=== PATIENT | female | born 1960 | race Caucasian/White ===

== ENCOUNTER 2018-11-06 15:36 | Emergency (ER) | payer BC, MEDICARE, SELFPAY ==
[2018-11-06 15:38] VITALS: BP 188/83; PULSE 79; RESP 16; TEMP 36.9; O2SAT 97; BMI 26.5
--- NOTE | 2018-11-06 16:23 | ED.VIS.BACK ---
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 It radiates down to her left knee but not beyond. No groin pain. No numbness. No bowel or bladder dysfunction. She feels it is difficult to walk but it is because of the pain, when asked if she has weakness in the leg she states it is only difficult to walk because it hurts. Further history obtained: Patient was at work when this happened. 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 She was doing at this morning, then she sat down. She had no problems until she stood up from a chair that she sat down in. Prior similar symptoms: No Recent Illness/Hospitalization: No - Past Medical History (1) Deafness Status: Chronic Comment: Following febrile illness age 4. Uses hearing aids occasionally but notes frequent headaches with use. Past Medical History - Allergies and Home Meds Allergies/Adverse Reactions: Allergies No Known Allergies Allergy (Verified 11/06/18 15:43) Primary Care Physician: Talib Devlin MD [Primary Care Provider] - Surgical History: hysterectomy, - - LLE muscle tumor resection, unclear type. Lives: Spouse/ Significant Other Smoking Status: Never smoker Drugs: None - no IVDU - Family History Maternal Family History: Reports: Heart Disease, Hypertension Paternal Family History: Reports: Diabetes Review of Systems General: Denies: Chills, Fever Gastrointestinal: Denies: Abdominal pain, Nausea, Vomiting, Diarrhea, Melena, Hematochezia Musculoskeletal: Reports: Back pain, Extremity Pain. Denies: Neck pain, Swelling Skin: Denies: Rash, Wounds Neurological: Denies: Headache, Weakness, Numbness Physical Exam Vital Signs/Narrative: Vital Signs Temp Pulse Resp BP Pulse Ox 11/06/18 15:38 98.4 F 79 16 188/83 H 97 Inital Vital Signs reviewed: Yes General: Well nourished, Well developed, - - uncomfortable, NAD Head: Normocephalic, Atraumatic Abdomen: Soft, Nontender, Nondistended, Normal bowel sounds Back: Normal Inspection, Paraspinal Tenderness - left lumbar, near/below pelvic brim and at left sciatic notch, - - Sitting straight leg raises yield only significant increase in back pain, no radicular symptoms to the feet. She tolerates only 10 or 15 degrees of elevation each.. Negative for: Spinal tenderness Extremeties: Nontender, No edema Skin: Normal color, No rash, No Trauma Neuro: Alert, Oriented, Normal Strength, Normal Sensation, Normal DTR, Normal Gait, Normal Reflexes Psychological: Normal affect, Normal Mood Diagnostic/Tx/Re-eval Clinical Impression(s) from Imaging Studies Lumbar Spine X-Ray 11/06/18 16:55 IMPRESSION: Degenerative changes of the spine, as detailed above. Electronically Signed: Sean Franklin MD at 17:14 EDT , Service support , - Medical Decision Making Patient was treated with analgesics and does feel better. Pain is still present though. She is able to walk. She is neurologically intact throughout her lower extremities. X-rays show no obvious acute abnormality. My suspicion is that she is having a radiculopathy with true sciatica although leg raises really are not positive for that, however she did not tolerate raising them very high at all, which is probably why. [facility] I will write her prescription for analgesics and write her off for tomorrow because of all of this pain. ED Disposition - Plan for ED Patient: Disposition: Home or Assisted Living Diagnosis: Acute low back pain with sciatica Instructions: ED Sciatica Prescriptions: Oxycodone HCl/Acetaminophen [Percocet 5/325] 1 tab PO Q6H PRN PRN 3 Days #12 tab PRN Reason: Pain Naproxen [Naprosyn] 500 mg PO BID PRN #20 tab Referrals: Talib Devlin MD [Primary Care Provider] - [facility] [GROUP OF PHYSICIANS] - (1-3 days)
--- NOTE | 2018-11-06 16:27 | ED.DCSUM_ITS ---
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 It radiates down to her left knee but not beyond. No groin pain. No numbness. No bowel or bladder dysfunction. She feels it is difficult to walk but it is because of the pain, when asked if she has weakness in the leg she states it is only difficult to walk because it hurts. Further history obtained: Patient was at work when this happened. 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 She was doing at this morning, then she sat down. She had no problems until she stood up from a chair that she sat down in. Prior similar symptoms: No Recent Illness/Hospitalization: No - Past Medical History (1) Deafness Status: Chronic Comment: Following febrile illness age 4. Uses hearing aids occasionally but notes frequent headaches with use. Past Medical History - Allergies and Home Meds Allergies/Adverse Reactions: Allergies No Known Allergies Allergy (Verified 11/06/18 15:43) Primary Care Physician: Talib Devlin MD [Primary Care Provider] - Surgical History: hysterectomy, - - LLE muscle tumor resection, unclear type. Lives: Spouse/ Significant Other Smoking Status: Never smoker Drugs: None - no IVDU - Family History Maternal Family History: Reports: Heart Disease, Hypertension Paternal Family History: Reports: Diabetes Review of Systems General: Denies: Chills, Fever Gastrointestinal: Denies: Abdominal pain, Nausea, Vomiting, Diarrhea, Melena, Hematochezia Musculoskeletal: Reports: Back pain, Extremity Pain. Denies: Neck pain, Swelling Skin: Denies: Rash, Wounds Neurological: Denies: Headache, Weakness, Numbness Physical Exam Vital Signs/Narrative: Vital Signs Temp Pulse Resp BP Pulse Ox 11/06/18 15:38 98.4 F 79 16 188/83 H 97 Inital Vital Signs reviewed: Yes General: Well nourished, Well developed, - - uncomfortable, NAD Head: Normocephalic, Atraumatic Abdomen: Soft, Nontender, Nondistended, Normal bowel sounds Back: Normal Inspection, Paraspinal Tenderness - left lumbar, near/below pelvic brim and at left sciatic notch, - - Sitting straight leg raises yield only significant increase in back pain, no radicular symptoms to the feet. She tolerates only 10 or 15 degrees of elevation each.. Negative for: Spinal tenderness Extremeties: Nontender, No edema Skin: Normal color, No rash, No Trauma Neuro: Alert, Oriented, Normal Strength, Normal Sensation, Normal DTR, Normal Gait, Normal Reflexes Psychological: Normal affect, Normal Mood Diagnostic/Tx/Re-eval Clinical Impression(s) from Imaging Studies Lumbar Spine X-Ray 11/06/18 16:55 IMPRESSION: Degenerative changes of the spine, as detailed above. Electronically Signed: Sean Franklin MD at 17:14 EDT , Service support , - Medical Decision Making Patient was treated with analgesics and does feel better. Pain is still present though. She is able to walk. She is neurologically intact throughout her lower extremities. X-rays show no obvious acute abnormality. My suspicion is that she is having a radiculopathy with true sciatica although leg raises really are not positive for that, however she did not tolerate raising them very high at all, which is probably why. She will follow-up with [facility]. I will write her prescription for analgesics and write her off for tomorrow because of all of this pain. ED Disposition - Plan for ED Patient: Disposition: Home or Assisted Living Diagnosis: Acute low back pain with sciatica Instructions: ED Sciatica Prescriptions: Oxycodone HCl/Acetaminophen [Percocet 5/325] 1 tab PO Q6H PRN PRN 3 Days #12 tab PRN Reason: Pain Naproxen [Naprosyn] 500 mg PO BID PRN #20 tab Referrals: Talib Devlin MD [Primary Care Provider] - [facility] [GROUP OF PHYSICIANS] - (1-3 days)
[2018-11-06] MEDS: Ketorolac 60 MG/2 ML Vial IM (16:42)
[2018-11-06] MEDS: Morphine 4 MG/ML Syringe SC (16:42)
[2018-11-06] MEDS: Ondansetron ODT 4 MG Tablet 8 MG PO (16:42)
--- NOTE | 2018-11-06 16:55 | RAD_ITS ---
STUDY: X-RAY - LUMBAR SPINE REASON FOR EXAM: Female, 58 years old. Left-sided low back pain after heavy lifting. TECHNIQUE: 3 view(s) of the lumbar spine were obtained. COMPARISON: None FINDINGS: Normal lumbar lordosis. There is no substantial scoliosis. There is grade 1 anterolisthesis of L5 on S1. There is multilevel early anterior endplate spondylosis of the lumbar vertebrae. There is multi-level degenerative disc disease with multi-level disc space narrowing. There is no demonstrated fracture. There are degenerative changes of the mid to lower lumbar facet joints. The soft tissue structures are unremarkable. RAD/Lumbar Spine 2 or 3 Views IMPRESSION: Degenerative changes of the spine, as detailed above. Electronically Signed: Sean Franklin MD at 17:14 EDT , Service support ,
--- NOTE | 2018-11-06 19:34 | ED.RN ---
spoke with pt's supervisors, Celestine ([phone]), and then Igor ([phone]) to ask about urine drug test and she is not a test but they have their own company [employer] to follow up with.
--- NOTE | 2018-11-06 19:49 | ED.RN ---
used [employer] service on ipad with MD to explain results and followup care with pt and spouse. pt refused w/c at discharge d/t it being less painful to walk.
== END 2018-11-06 19:50 | disposition home or self-care (01) ==
PROVIDERS: Emergency Provider Emergency Medicine; Family Provider Family Medicine; PCP Family Medicine
DX: M54.42 Lumbago with sciatica, left side (principal); H91.90 Unspecified hearing loss, unspecified ear
CPT/HCPCS: 72100; 96372; 99283

== ENCOUNTER 2019-01-07 03:03 | Emergency (ER) | payer BC, MEDICARE, SELFPAY ==
[2019-01-07 03:04] VITALS: BP 178/72; PULSE 67; RESP 18; TEMP 36.3; O2SAT 98; BMI 26.9
--- NOTE | 2019-01-07 03:19 | ED.VIS.GEN ---
History of Present Illness Chief Complaint: Back Informant: Patient, Significant Other Onset: Weeks - 3 Narrative: Patient is deaf, able to communicate by reading lips and writing. Patient with recurring lumbar pain for the past 3 weeks. He works at [employer], significant other present stating she is told to work and continue to lift heavy boxes. No falls or direct injuries. Patient was seen 2 months ago for similar events, asked her to follow-up with corporate care, however during discussion states there was letter of communication however she physically did not have a follow-up. Pain worse with bending and movement. No loss of bowel or bladder control. No pain down the legs this time. X-rays done 2 months ago with degenerative changes with grade 1 spinal listhesis at L5-S1. No allergies. Prior similar symptoms: Yes Past Medical History - Allergies and Home Meds Allergies/Adverse Reactions: Allergies No Known Allergies Allergy (Verified 01/07/19 03:09) Primary Care Physician: Talib Devlin MD [Primary Care Provider] - Surgical History: hysterectomy, - - LLE muscle tumor resection, unclear type. Smoking Status: Never smoker - Family History Maternal Family History: Reports: Heart Disease, Hypertension Paternal Family History: Reports: Diabetes Review of Systems General: Denies: Chills, Fever, Sweats Eyes: Denies: Visual changes - bilaterally, Diplopia ENT: Denies: Rhinorrhea, Sore throat Cardiovascular: Denies: Chest pain, Palpitations Respiratory: Denies: Dyspnea, Cough, Dyspnea on exertion Gastrointestinal: Denies: Abdominal pain, Nausea, Vomiting, Diarrhea, Melena, Hematochezia Genitourinary: Denies: Dysuria, Hematuria, Frequency Musculoskeletal: Reports: Back pain. Denies: Extremity Pain Skin: Denies: Rash, Wounds Neurological: Denies: Headache, Weakness, Numbness Physical Exam Vital Signs/Narrative: Vital Signs Temp Pulse Resp BP Pulse Ox 01/07/19 03:04 97.3 F L 67 18 178/72 H 98 Inital Vital Signs reviewed: Yes General: Well nourished, Well developed, No Acute Distress Head: Normocephalic, Atraumatic Eyes: Perrl, EOMI ENT: Moist mucous membranes, No rhinorrhea Neck: Supple, Nontender Cardiovascular: Regular rate, Regular rhythm, No murmurs Respiratory: No distress, CTA bilaterally, Chest nontender Abdomen: Soft, Nontender, Nondistended, Normal bowel sounds Back: Normal Inspection, - - Reproducible left paralumbar tenderness, straight leg test did not elicit any pain down the legs have discomfort in the right lower back. 3+ right patellar reflex, 1+ left patellar reflex.. Negative for: Spinal tenderness Extremities: Nontender, No edema Skin: Normal color, No rash Neurological: Alert, Oriented x3, Normal Strength, Normal Sensation Psychological: Normal affect, Normal Mood Diagnostic/Tx/Re-eval - Medical Decision Making Patient with no falls or direct injury. Lifting at work, reproducible symptoms. X-ray 2 months ago no degenerative changes. [facility] report noted one prescription oxycodone from 2 months ago. Patient able to ambulate in the ED, will placed on anti-inflammatories and muscle relaxers. Appropriate work restrictions were given. Discussed need to follow-up and be physically seen by [facility] for reevaluation and continue restrictions as needed. All questions were answered. ED Disposition - Plan for ED Patient: Disposition: Home or Assisted Living Diagnosis: Lumbar spine strain Instructions: Back Sprain/Strain Prescriptions: Ibuprofen 600 mg PO 4X/DAY PRN #20 tablet PRN Reason: Pain Diazepam [Valium] 5 mg PO Q8 PRN #12 tablet PRN Reason: Muscle Spasm Referrals: Talib Devlin MD [Primary Care Provider] - [facility] [GROUP OF PHYSICIANS] - 2 Days
[2019-01-07] MEDS: diazePAM 5 MG Tablet PO (03:28)
[2019-01-07] MEDS: Ibuprofen 600 MG Tablet PO (03:29)
[2019-01-07 03:42] VITALS: BP 164/70; PULSE 66; RESP 18; O2SAT 98
[2019-01-07 03:43] VITALS: RESP 16
== END 2019-01-07 03:43 | disposition home or self-care (01) ==
LOC: ED 03:39
PROVIDERS: Emergency Provider Emergency Medicine; Family Provider Family Medicine; PCP Family Medicine
DX: S39.012A Strain of muscle, fascia and tendon of lower back, initial encounter (principal); X50.0XXA Overexertion from strenuous movement or load, initial encounter; Y93.9 Activity, unspecified; Y92.9 Unspecified place or not applicable; H91.93 Unspecified hearing loss, bilateral
CPT/HCPCS: 99283

== ENCOUNTER 2019-08-16 18:19 | Observation (INO) | payer BC, MEDICARE, SELFPAY ==
[2019-08-16 18:22] VITALS: BP 148/85; PULSE 74; RESP 18; TEMP 36.5; O2SAT 95; BMI 25.7
--- NOTE | 2019-08-16 18:47 | EKG12_ITS ---
Test Reason : CHEST PAIN Blood Pressure : / mmHG Vent. Rate : 068 BPM Atrial Rate : 068 BPM P-R Int : 164 ms QRS Dur : 074 ms QT Int : 402 ms P-R-T Axes : 046 -05 -15 degrees QTc Int : 427 ms Normal sinus rhythm Minimal voltage criteria for LVH, may be normal variant Nonspecific T wave abnormality Abnormal ECG Confirmed by PIERRE RAZO, ERLINDA ([id number]), legal editor LEAH AVILA ([id number]) on 08/23/2019 11:12:18 AM Referred By: [facility] Confirmed By:ARIANA JAY MD
--- NOTE | 2019-08-16 18:49 | ED.DCSUM_ITS ---
History of Present Illness Chief Complaint: Chest Pain Informant: Patient Onset: Today Context: Gradual Onset Narrative: Patient is deaf and history is obtained via writing notes. Patient states that she developed chest pain that started 45 minutes ago. She states it feels a squeezing and pressure. She denies shortness of breath. Pain does radiate into her back as well as into the right side of her jaw. She denies ever having pain like this previously. She did not take anything at home for pain. On review of records it does appear she was admitted in 2015 with chest pain and had a normal stress test at that time. - Past Medical History (1) Deafness Status: Chronic Comment: Following febrile illness age 4. Uses hearing aids occasionally but notes frequent headaches with use. (2) Hypertension Status: Chronic Past Medical History - Allergies and Home Meds Allergies/Adverse Reactions: Allergies No Known Allergies Allergy (Verified 08/16/19 18:27) Primary Care Physician: Talib Devlin MD [Primary Care Provider] - Prior records reviewed: Yes Surgical History: hysterectomy, - - LLE muscle tumor resection, unclear type. Lives: Spouse/ Significant Other Smoking Status: Never smoker - Family History Maternal Family History: Reports: Heart Disease, Hypertension Paternal Family History: Reports: Diabetes Review of Systems General: Denies: Chills, Fever Eyes: Denies: Visual changes - bilaterally ENT: Denies: Bilateral ear pain Cardiovascular: Reports: Chest pain Respiratory: Denies: Dyspnea Gastrointestinal: Denies: Abdominal pain, Nausea, Vomiting, Diarrhea Genitourinary: Denies: Dysuria Musculoskeletal: Reports: Back pain Skin: Denies: Rash Neurological: Denies: Headache Allergy: Denies: Uticaria Physical Exam Vital Signs/Narrative: Vital Signs Temp Pulse Resp BP Pulse Ox 08/16/19 18:22 97.7 F L 74 18 148/85 H 95 Inital Vital Signs reviewed: Yes General: Well nourished, Well developed Head: Normocephalic ENT: Moist mucous membranes Neck: Supple Cardiovascular: Regular rate, Regular rhythm Respiratory: No distress, CTA bilaterally, Chest nontender Abdomen: Soft, Nontender Back: Nontender Extremities: Nontender Skin: Normal color, No rash Neurological: Alert, Oriented x3 Psychological: Normal affect Diagnostic/Tx/Re-eval Impressions Chest X-Ray 08/16/19 18:55 IMPRESSION: Stable chest. No demonstrated acute cardiopulmonary process. Electronically Signed: Jess Palafox MD at 19:23 EDT Tel , Service support , 08/16/19 18:55 Chest 1 View (Portable) [RAD] Stat Laboratory Results 08/16/19 08/16/19 18:55 18:55 WBC 7.9 RBC 4.17 L Hgb 12.5 Hct 36.0 L MCV 86.3 MCH 30.0 MCHC 34.7 RDW Std Deviation 40.2 RDW Coeff of Ivy 12.9 Plt Count 239 MPV 10.1 Immature Gran % (Auto) 0.300 Neut % (Auto) 51.5 Lymph % (Auto) 38.1 [place] % (Auto) 6.8 Eos % (Auto) 2.9 Baso % (Auto) 0.4 Absolute Neuts (auto) 4.1 Absolute Lymphs (auto) 3.01 Nucleated RBC % 0 Sodium 137 Potassium 3.8 Chloride 103 Carbon Dioxide 26.0 Anion Gap 8 BUN 17 Creatinine 0.85 Estim Creat Clear Calc 64.92 Est GFR (MDRD) Af Amer 88 Est GFR (MDRD) Non-Af 73 BUN/Creatinine Ratio 19.9 Glucose 145 H Calcium 8.5 Troponin I 0.040 - EKG Initial EKG Interpretation: Sinus Rhythm - Sinus at 68. She has lateral T inversions. This is unchanged when compared to prior study of July 2014. - Medical Decision Making Patient was given aspirin along with morphine and Zofran for pain. On repeat evaluation patient states her pain is improved. She is now rating her pain at a 2 where previously it was an 8. Patient reiterates that she is never had pain like this previously. I would prefer she stay overnight for cycling of cardiac enzymes and further testing. She is in agreement with this. She will be given a work note for tomorrow. We will speak with the hospitalist. ED Disposition - Plan for ED Patient: Disposition: [facility] Diagnosis: Chest pain Referrals: Talib Devlin MD [Primary Care Provider] -
--- NOTE | 2019-08-16 18:55 | RAD_ITS ---
STUDY: X-RAY CHEST REASON FOR EXAM: Female, 59 years old. And quot; SQUEEZING CHEST PAIN STARTED 30 MIN AGO. GOES UP RIGHT JAW AND INTO LEFT ARM. DENIES NAUSEA, DIZZINESS. TECHNIQUE: Single AP portable view of the chest. COMPARISON: August 13, 2014 chest x-ray FINDINGS: Overall the lung markings appear relatively similar. There is no visualized acute focal consolidation. There is no demonstrated pleural abnormality. There is borderline cardiomegaly. Normal mediastinum and dustin. Normal visualized pulmonary arteries. Normal visualized aortic arch and descending thoracic aorta. There are diffuse degenerative changes of the visualized thoracic spine. Normal visualized ribs, clavicles, and shoulders. There is no demonstrated abnormality of the visualized soft tissue structures of the upper abdomen. RAD/Chest 1 View (Portable) IMPRESSION: Stable chest. No demonstrated acute cardiopulmonary process. Electronically Signed: Jess Palafox MD at 19:23 EDT Tel , Service support ,
[2019-08-16 19:18] LABS: Absolute Lymphocyte Count 3.01 X10^3/uL (0.83-4.51); Absolute Neutrophil Count 4.1 X10^3/uL (2.0-7.7); Basophil# 0.03 X10^3/uL; Basophil% 0.4 % (0-1); Eosinophil# 0.23 X10^3/uL; Eosinophils% 2.9 % (0-5); Hemoglobin 12.5 g/dL (12.0-15.0); Lymphocyte # 3.01 X10^3/ul (4.0); Lymphocyte % 38.1 % (19-41); Mean Corp Hgb Conc 34.7 g/dL (32-36); Mean Corpuscular Volume 86.3 fL (81-99); Mean Platelet Vol. 10.1 fl (6.2-12.0); Monocyte# 0.54 X10^3/uL; Monocyte% 6.8 % (0-10); NRBC Flagged by Analyzer 0 % (0-5); Neutrophil # 4.08 X10^3/uL (2.7-7.7); Neutrophil % 51.5 % (47-70); Platelet Count 239 K/mm3 (150-450); RBC Distribution Width CV 12.9 % (11.6-14.6); RBC Distribution Width SD 40.2 fl (35.1-43.9); Red Blood Count 4.17 M/mm3 (4.2-5.4); White Blood Count 7.9 K/mm3 (4.4-11.0)
[2019-08-16] MEDS: 0.9% Normal Saline 1,000 ML 150 ML IV (19:23)
[2019-08-16] MEDS: Morphine 4 MG/ML Syringe IV (19:24)
[2019-08-16] MEDS: Aspirin 81 MG TAB.CHEW 324 MG PO (19:24)
[2019-08-16] MEDS: Ondansetron 4 MG/2 ML Vial IV (19:26)
[2019-08-16 19:33] VITALS: BP 183/70; PULSE 68; RESP 16; O2SAT 96
[2019-08-16 19:38] LABS: Anion Gap 8 (5-15); BUN 17 mg/dL (7-18); BUN/Creat Ratio 19.9 RATIO (10-20); Calcium,Total 8.5 mg/dL (8.5-10.1); Chloride 103 mmol/L (98-107); Creatinine, Serum 0.85 mg/dL (0.55-1.02); EST Glomerular Filtration Rate 73 mL/min (>60); Est Glom Filt Rate - Afr Amer 88 mL/min (>60); Estimated Creatinine Clearance 64.92 ml/min; Glucose 145 mg/dL (74-106); Potassium 3.8 mmol/L (3.5-5.1); Sodium Level 137 mmol/L (136-145)
--- NOTE | 2019-08-16 20:08 | PCM.HP.STD ---
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 (4) Deafness Status: Chronic Comment: Following febrile illness age 4. Uses hearing aids occasionally but notes frequent headaches with use. History of Present Illness Date of Admission: 08/16/19 Chief Complaint: chest pain The patient is a 59 year old F with a significant history of deafness; hypertension; and borderline HLD who presented to the ED with excruciating chest pain that began a few hours before presentation. She rated her chest pain as 8/10. Her chest pain spun across her entire chest. Her chest pain radiates to her right jaw and to her left arm. It also goes to her back. She described her chest pain as squeezing. Her chest pain began suddenly while at rest and watching TV. At the emergency department patient was given aspirin; and morphine. With the medications above her pain decreased to 3 out of 10. She denies any aggravating or ameliorating factors while at home. She denies any nausea or vomiting. She reports some associated mild shortness of breath. Of note patient is deaf and history was taken through writing. Patient was admitted at our hospital ([facility]) on 08/13/2014 and discharged on 08/13/2014 for chest pain. Cardiac work-up at that time was negative. Past Medical History Past Medical History (Chronic Problems): Chronic Problems Hypertension (Chronic) LLE Muscle Tumor (Chronic) Unclear tumor type, notes s/p resection of muscle tissue. Deafness (Chronic) Following febrile illness age 4. Uses hearing aids occasionally but notes frequent headaches with use. Allergies No Known Allergies Allergy (Verified 08/16/19 18:27) Home Medications: Ambulatory Orders Medication Instructions Recorded Lisinopril [Zestril] 20 mg PO DAILY 08/16/19 Surgical History: hysterectomy, - - LLE muscle tumor resection, unclear type. Psychiatric History: No pertinent psych hx GUIDANCE ADVISER History: No pertinent GUIDANCE ADVISER history Lives: Spouse/ Significant Other Smoking Status: Never smoker Alcohol: None - *Family History Maternal History Items: Heart Disease, Hypertension Paternal History Items: Diabetes Review of Systems Constitutional: Denies: Chills, Fever, Weight Change HEENT: Denies: Head Aches, Sinus Congestion, Sinus Drainage Cardiovascular: Reports: Chest Pain. Denies: Palpitations Respiratory: Reports: Shortness of Breath. Denies: Cough, Sputum production Gastrointestinal: Denies: Abdominal Pain, Nausea, Vomiting Genitourinary: Denies: Dysuria Musculoskeletal: Denies: Joint Pain, Joint Tenderness Skin: Denies: Rash, Wounds Neurological: Denies: Numbness, Tingling, Focal weakness Psychiatric: Denies: Anxiety, Depression, Homicidal Ideations, Suicidal Ideations Hematologic/ Lymphatic: Denies: Easy Bruising, Easy Bleeding VTE Information - Inpt Only VTE Present on Admission: No VTE Mechan Device Prophylaxis: SCD's VTE Pharm Prophylaxis ordered?: No Patient Problems: Active and Suspected Problems Chest pain (Acute) - Physical Exam Vitals/I&O's: Vital Signs Temp Pulse Resp BP Pulse Ox 97.7 F L 68 16 183/70 H 96 08/16/19 18:22 08/16/19 19:33 08/16/19 19:33 08/16/19 19:33 08/16/19 19:33 Oxygen Delivery Method Room Air Weight: 70.3 kg Body Mass Index (BMI) 25.7 General: Alert, Oriented x3, Cooperative HEENT: Atraumatic, PERRLA, EOMI, Normocephalic Neck: Supple, No JVD, Negative Carotid Bruits Lungs: Clear to auscultation, Normal air movement Cardiovascular: Regular rate, No murmurs Abdomen: Bowel Sounds Present, Soft, Non Tender Extremities: No edema, Capillary Refill Less than 3 Seconds Skin: No rashes, No breakdown Musculoskeletal: No Tenderness to Palpation of Joints or Extremities Neurological: Cranial nerves II-XII grossly intact - except that patient is deaf. Psych/Mental Status: Normal Affect, Appropriate Laboratory Results 08/16/19 18:55: WBC 7.9, RBC 4.17 L, Hgb 12.5, Hct 36.0 L, MCV 86.3, MCH 30.0, MCHC 34.7, RDW Std Deviation 40.2, RDW Coeff of Ivy 12.9, Plt Count 239, MPV 10.1, Immature Gran % (Auto) 0.300, Neut % (Auto) 51.5, Lymph % (Auto) 38.1, [place] % (Auto) 6.8, Eos % (Auto) 2.9, Baso % (Auto) 0.4, Absolute Neuts (auto) 4.1, Absolute Lymphs (auto) 3.01, Nucleated RBC % 0 08/16/19 18:55: Sodium 137, Potassium 3.8, Chloride 103, Carbon Dioxide 26.0, Anion Gap 8, BUN 17, Creatinine 0.85, Estim Creat Clear Calc 64.92, Est GFR (MDRD) Af Amer 88, Est GFR (MDRD) Non-Af 73, BUN/Creatinine Ratio 19.9, Glucose 145 H, Calcium 8.5, Troponin I 0.040 Current Medications Sodium Chloride () 1,000 mls @ 150 mls/hr IV .[id number] [facility] Last Admin: 08/16/19 19:23 Dose: 150 mls/hr Documented by: Assessment/Plan All Active Problems Chest pain (Acute) The patient is a 59 year old F with a significant history of diabetes; hypertension; borderline HLD who presented to the ED with excruciating chest pain that began a few hours before presentation concerning for cardiac source of chest pain. Chest pain Place on a monitored bed at PCU CXR independently reviewed confirms no acute cardiopulmonary process. EKG independently reviewed confirms subtle J-point elevation in leads V1 and V2. ASA 81 mg p.o. daily SL NTG 0.4 mg prn as needed for chest pain We will check lipid panel. Statin: Start patient on Lipitor 40 mg nightly. Serial cardiac enzymes Stat EKG as needed for chest pain Treadmill stress test in the AM if the cardiac enzymes are negative Hypertension On presentation blood pressure was not within goal Lisinopril continued PRN hydralazine ordered. DVT prophylaxis SCD OBSV E&M: [id number] Initial observation care L3
[2019-08-16 21:32] VITALS: BP 143/70; PULSE 57; RESP 15; TEMP 36.4; O2SAT 96
[2019-08-16 21:40] VITALS: PULSE 65; BMI 27.3; BMI 69.9
--- NOTE | 2019-08-16 21:48 | EKG12_ITS ---
Test Reason : CP ADMIT Blood Pressure : / mmHG Vent. Rate : 055 BPM Atrial Rate : 055 BPM P-R Int : 162 ms QRS Dur : 072 ms QT Int : 442 ms P-R-T Axes : 053 003 -28 degrees QTc Int : 422 ms Sinus bradycardia T wave abnormality, consider lateral ischemia Abnormal ECG When compared with ECG of 13-AUG-2014 05:51, No significant change was found Confirmed by KOSTAS DAVIS ([id number]), electronic news gathering editor CUCO GUTIERREZ ([id number]) on 08/19/2019 9:30:35 AM Referred By: DR EPPS Confirmed By:KOSTAS DAVIS
[2019-08-16 22:00] VITALS: BP 147/68; BP 169/72; PULSE 62; RESP 12; TEMP 36.3; O2SAT 95
[2019-08-17] MEDS: Atorvastatin Calcium 40 MG Tablet PO (00:01)
[2019-08-17] MEDS: 0.9% Saline Lock 10 ML Syringe IV (01:13)
[2019-08-17 01:57] VITALS: PULSE 72
[2019-08-17 02:22] VITALS: BP 111/52; PULSE 71; RESP 18; TEMP 36.8; O2SAT 92
[2019-08-17 02:22] LABS: Cholesterol 183 mg/dL (200); High Density Lipoprotein 33 mg/dL; Triglycerides 201 mg/dL; Very Low Density Lipoprotein 40 mg/dL (5-40)
--- NOTE | 2019-08-17 05:55 | EKG12_ITS ---
Test Reason : AM EKG Blood Pressure : / mmHG Vent. Rate : 065 BPM Atrial Rate : 065 BPM P-R Int : 170 ms QRS Dur : 078 ms QT Int : 430 ms P-R-T Axes : 048 -19 -42 degrees QTc Int : 447 ms Normal sinus rhythm T wave abnormality, consider inferior ischemia Abnormal ECG When compared with ECG of 13-AUG-2014 05:51, T wave inversion more evident in Inferior leads Confirmed by KOSTAS DAVIS ([id number]), editor greeting card CUCO GUTIERREZ ([id number]) on 08/19/2019 9:46:57 AM Referred By: DR EPPS Confirmed By:KOSTAS DAVIS
[2019-08-17] MEDS: Lisinopril 20 MG Tablet PO (06:07)
[2019-08-17] MEDS: Aspirin E.C. 81 MG Tablet PO (06:07)
[2019-08-17 07:41] VITALS: PULSE 57
[2019-08-17 08:18] VITALS: BP 138/65; PULSE 62; RESP 16; TEMP 36.5; O2SAT 95
--- NOTE | 2019-08-17 11:53 | DCINST_ITS ---
- Discharge Diagnoses Current Active Problems: Current Active and Chronic Problems Musculoskeletal chest pain You will use the following diet at home:: No restrictions Discharge Activity: Return to Normal Activity Call your doctor if you observe: Shortness of breath, Dizziness, Fainting spells, Chest pain Allergies/Adverse Reactions: Allergies No Known Allergies Allergy (Verified 08/16/19 18:27) Medications to take at Discharge Lisinopril [Zestril] 20 mg PO DAILY 08/16/19 Primary Care Physician: Talib Devlin MD [Primary Care Provider] - Please follow up with your Primary Care Physician in: 1 Week Test Results: Test results from this visit will be discussed in further detail at your follow- up appointment, if applicable. Proposed Discharge Date: 08/17/19
--- NOTE | 2019-08-17 12:51 | STRESSREP ---
Stress Test Report Date: 08/17/2019 Procedure: Pharmacologic stress nuclear imaging study Indications: Chest pain Consent: Per the patient Procedure: The patient underwent pharmacologic (Regadenoson) evaluation with a peak heart rate of 90 beats per minute (55 %predicted maximal heart rate) and a peak blood pressure of 136/70 mmHg. The baseline ECG demonstrated normal sinus rhythm, nonspecific ST-T changes. EKG during lexiscan infusion revealed no significant ischemic changes. EKG post infusion revealed no significant ischemic changes [There were no cardiac dysrhythmias pretest, during pharmacologic infusion, or recovery]. [There was no complaint of chest discomfort during pharmacologic infusion or recovery]. The examination was discontinued secondary to completion of protocol. Impression: 1. Lexiscan stress test test is negative for Lexiscan infusion induced EKG changes of ischemia. 2. Lexiscan stress test test is negative for Lexiscan infusion induced chest pain. 3. Results of the nuclear portion of the test is as below Myocardial perfusion imaging study: Technique: The patient was injected with 12 millicuries of technetium 99m Cardiolite and subsequently rest SPECT Cardiolite nuclear imaging was obtained in the horizontal long, vertical long, and short axis views. The patient underwent pharmacologic (Regadenoson) evaluation. Please see above for details. The patient was injected with 33.9 millicuries of technetium 99m Cardiolite and subsequently stress SPECT Cardiolite nuclear imaging was obtained in the horizontal long, vertical long, and short axis views. A gated Cardiolite study at peak stress was obtained. Interpretation: Rest and stress SPECT Cardiolite nuclear imaging status post realignment, normalization, and attenuation correction demonstrate overall normal myocardial radioisotope uptake. There is no evidence of significant ischemia or infarction. Gated images reveal no significant regional wall motion abnormalities. The reported LVEF is greater than 70 %. Impression: 1. There is no evidence of significant ischemia or infarction. 2. Estimated ejection fraction is greater than 70%. This note was generated with [employer] software. It may contain incorrect words, spelling, and punctuation that were not noted in checking the note before signing.
--- NOTE | 2019-08-17 13:09 | DS.PCM_ITS ---
<Twyla Seo - Last Filed: 08/17/19 13:15> Discharge Date and Diagnosis Date of Admission: 08/16/19 Date of Discharge: 08/17/19 - Primary Discharge Diagnosis Active and Suspected Problems 1. Musculoskeletal chest pain 2. Abnormal troponin 3. Hypertension 4. Deafness - Secondary Discharge Diagnosis Chronic Problems Hypertension (Chronic) LLE Muscle Tumor (Chronic) Unclear tumor type, notes s/p resection of muscle tissue. Deafness (Chronic) Following febrile illness age 4. Uses hearing aids occasionally but notes frequent headaches with use. Hospital Course and Treatment Imaging Results: Diagnostic Data Chest X-Ray 08/16/19 18:55 IMPRESSION: Stable chest. No demonstrated acute cardiopulmonary process. Electronically Signed: Jess Palafox MD at 19:23 EDT Tel , Service support , Operations: None Procedures: Stress test Summary of Care Provided: The patient is a 59 year old F admitted 08/16/2019 due to chest pain. 1. Musculoskeletal chest pain-patient reports increased physical demands at work as well as increased stress. Chest x-ray unremarkable. Patient underwent nuclear stress test which was negative for ischemia. Gated ejection fraction 70%. Follow-up with primary care physician within 1 week. Patient requesting work restrictions due to increased physical demand, recommend discussing this with primary care physician for ongoing evaluation and recommendations. 2. Abnormal troponin-mild increase, did not trend. No EKG changes. Stress test normal as noted above. 3. Hypertension-stable, continue home lisinopril regimen. 4. Deafness Patient seen and examined prior to discharge. Physical assessment as noted below. Patient is stable for discharge with follow up recommendations as noted above. This patient was seen by JOSE Okeefe under the supervision of Dr. Olivarez. - Physical Exam Vitals/I&O's: Vital Signs Temp Pulse Resp BP Pulse Ox 97.7 F L 62 16 138/65 H 95 08/17/19 08:18 08/17/19 08:18 08/17/19 08:18 08/17/19 08:18 08/17/19 08:18 Oxygen Delivery Method Room Air Weight: 154 lb 1.65 oz Body Mass Index (BMI) 27.3 Intake and Output for Last 24 Hours 08/15/19 08/16/19 08/17/19 23:59 23:59 23:59 Intake Total 1367.5 / 1367.5 Output Total 650 / 650 Balance 717.5 / 717.5 General: Alert, Oriented x3, Cooperative HEENT: Atraumatic, PERRLA, EOMI, Normocephalic, - - Deafness Neck: Supple, No JVD, Negative Carotid Bruits Lungs: Clear to auscultation, Normal air movement Cardiovascular: Regular rate, Regular Rhythm, Normal S1, Normal S2, No murmurs Abdomen: Bowel Sounds Present, Soft, Non Tender, Non-Distended Extremities: No clubbing, No cyanosis, No edema, Capillary Refill Less than 3 Seconds Skin: No rashes, No breakdown Musculoskeletal: No Tenderness to Palpation of Joints or Extremities Neurological: Cranial nerves II-XII grossly intact, Neuro grossly intact Psych/Mental Status: Normal Affect, Appropriate Laboratory Results 08/16/19 18:55: WBC 7.9, RBC 4.17 L, Hgb 12.5, Hct 36.0 L, MCV 86.3, MCH 30.0, MCHC 34.7, RDW Std Deviation 40.2, RDW Coeff of Ivy 12.9, Plt Count 239, MPV 10.1, Immature Gran % (Auto) 0.300, Neut % (Auto) 51.5, Lymph % (Auto) 38.1, [place] % (Auto) 6.8, Eos % (Auto) 2.9, Baso % (Auto) 0.4, Absolute Neuts (auto) 4.1, Absolute Lymphs (auto) 3.01, Nucleated RBC % 0 08/16/19 18:55: Sodium 137, Potassium 3.8, Chloride 103, Carbon Dioxide 26.0, Anion Gap 8, BUN 17, Creatinine 0.85, Estim Creat Clear Calc 64.92, Est GFR (MDRD) Af Amer 88, Est GFR (MDRD) Non-Af 73, BUN/Creatinine Ratio 19.9, Glucose 145 H, Calcium 8.5, Troponin I 0.040 08/16/19 22:10: Troponin I 0.052 H 08/17/19 01:10: Troponin I 0.054 H 08/17/19 01:10: Triglycerides 201 H, Cholesterol 183, LDL Cholesterol 110, VLDL Cholesterol 40, HDL Cholesterol 33 L 08/17/19 05:10: Troponin I 0.049 H Current Medications Aspirin (Ecotrin) 81 mg PO DAILY@0800 [facility] Last Admin: 08/17/19 06:07 Dose: 81 mg Documented by: Atorvastatin Calcium (Lipitor) 40 mg PO QHS [facility] Last Admin: 08/17/19 00:01 Dose: 40 mg Documented by: Glucagon () 1 mg IM .X1 PRN PRN Reason: Hypoglycemia Hydralazine HCl (Apresoline Iv) 5 mg IV Q4H PRN PRN PRN Reason: SBP > 160 Dextrose (Dextrose 10%-Water) 250 mls @ 999 mls/hr IV .Q16M PRN; Protocol PRN Reason: HYPOGLYCEMIA Sodium Chloride () 250 mls @ 15 mls/hr IV .[id number] PRN PRN Reason: Saline Flush Sodium Chloride () 250 mls @ 15 mls/hr IV .[id number] PRN PRN Reason: Additional IVPB Infusion Lisinopril (Zestril) 20 mg PO DAILY [facility] Last Admin: 08/17/19 06:07 Dose: 20 mg Documented by: Nitroglycerin (Nitrostat) 0.4 mg SUBLINGUAL Q5M PRN PRN Reason: CHEST PAIN Ondansetron HCl (Zofran) 4 mg IV Q8H PRN PRN PRN Reason: NAUSEA/VOMITING Sodium Chloride () 10 - 40 ml IV UD PRN PRN Reason: SALINE FLUSH Last Admin: 08/17/19 01:13 Dose: 10 ml Documented by: Discharge Diet: No Restrictions Discharge Activity: Return to Normal Activity Call your doctor if you observe: Shortness of breath, Dizziness, Fainting spells, Chest pain Home Medications: Medications to take at Discharge Lisinopril [Zestril] 20 mg PO DAILY 08/16/19 Primary Care Physician: Talib Devlin MD [Primary Care Provider] - Please follow up with your Primary Care Physician in: 1 Week Disposition: Home Minutes spent on discharge:: 35 Patient Condition:: Stable Medical Necessity - Tobacco Use Smoking Status: Never smoker Meaningful Use Info Meaningful Use Diagnoses (Choose all that apply): None applicable <Carlos Olivarez - Last Filed: 08/17/19 14:34> Discharge Date and Diagnosis - Secondary Discharge Diagnosis Chronic Problems Hypertension (Chronic) LLE Muscle Tumor (Chronic) Unclear tumor type, notes s/p resection of muscle tissue. Deafness (Chronic) Following febrile illness age 4. Uses hearing aids occasionally but notes frequent headaches with use. Hospital Course and Treatment Imaging Results: 08/17/19 05:55 Nuclear Stress Test - Treadmil [NM] AM (NON MEDS) Summary of Care Provided: The patient is a 59 year old F [] - Physical Exam Vitals/I&O's: Vital Signs Temp Pulse Resp BP Pulse Ox 97.7 F L 62 16 138/65 H 95 08/17/19 08:18 08/17/19 08:18 08/17/19 08:18 08/17/19 08:18 08/17/19 08:18 Oxygen Delivery Method Room Air Weight: 154 lb 1.65 oz Body Mass Index (BMI) 27.3 Intake and Output for Last 24 Hours 08/15/19 08/16/19 08/17/19 23:59 23:59 23:59 Intake Total 1367.5 / 1367.5 Output Total 650 / 650 Balance 717.5 / 717.5 Laboratory Results 08/16/19 18:55: WBC 7.9, RBC 4.17 L, Hgb 12.5, Hct 36.0 L, MCV 86.3, MCH 30.0, MCHC 34.7, RDW Std Deviation 40.2, RDW Coeff of Ivy 12.9, Plt Count 239, MPV 10.1, Immature Gran % (Auto) 0.300, Neut % (Auto) 51.5, Lymph % (Auto) 38.1, [place] % (Auto) 6.8, Eos % (Auto) 2.9, Baso % (Auto) 0.4, Absolute Neuts (auto) 4.1, Absolute Lymphs (auto) 3.01, Nucleated RBC % 0 08/16/19 18:55: Sodium 137, Potassium 3.8, Chloride 103, Carbon Dioxide 26.0, Anion Gap 8, BUN 17, Creatinine 0.85, Estim Creat Clear Calc 64.92, Est GFR (MDRD) Af Amer 88, Est GFR (MDRD) Non-Af 73, BUN/Creatinine Ratio 19.9, Glucose 145 H, Calcium 8.5, Troponin I 0.040 08/16/19 22:10: Troponin I 0.052 H 08/17/19 01:10: Troponin I 0.054 H 08/17/19 01:10: Triglycerides 201 H, Cholesterol 183, LDL Cholesterol 110, VLDL Cholesterol 40, HDL Cholesterol 33 L 08/17/19 05:10: Troponin I 0.049 H Current Medications Aspirin (Ecotrin) 81 mg PO DAILY@0800 [facility] Last Admin: 08/17/19 06:07 Dose: 81 mg Documented by: Atorvastatin Calcium (Lipitor) 40 mg PO QHS [facility] Last Admin: 08/17/19 00:01 Dose: 40 mg Documented by: Glucagon () 1 mg IM .X1 PRN PRN Reason: Hypoglycemia Hydralazine HCl (Apresoline Iv) 5 mg IV Q4H PRN PRN PRN Reason: SBP > 160 Dextrose (Dextrose 10%-Water) 250 mls @ 999 mls/hr IV .Q16M PRN; Protocol PRN Reason: HYPOGLYCEMIA Sodium Chloride () 250 mls @ 15 mls/hr IV .[id number] PRN PRN Reason: Saline Flush Sodium Chloride () 250 mls @ 15 mls/hr IV .[id number] PRN PRN Reason: Additional IVPB Infusion Lisinopril (Zestril) 20 mg PO DAILY [facility] Last Admin: 08/17/19 06:07 Dose: 20 mg Documented by: Nitroglycerin (Nitrostat) 0.4 mg SUBLINGUAL Q5M PRN PRN Reason: CHEST PAIN Ondansetron HCl (Zofran) 4 mg IV Q8H PRN PRN PRN Reason: NAUSEA/VOMITING Sodium Chloride () 10 - 40 ml IV UD PRN PRN Reason: SALINE FLUSH Last Admin: 08/17/19 01:13 Dose: 10 ml Documented by: Addendum: Dr. Olivarez I personally examined the patient and reviewed the chart. I agree with the above. 59-year-old female presented to the hospital with chest pain. She did have borderline elevated troponins to 0.054. She had a stress test which was negative and her chest pain had resolved on the day of discharge. Discussed discharge plan with her and her and they both expressed understanding of the risks and benefits of going home. Recommended to follow-up with a diesel scoop operator in a couple of weeks because she did have a slightly elevated troponin even though the stress was normal. OBSV E&M: [id number] Observation care discharge
--- NOTE | 2019-08-17 13:17 | PCM.WORK.EX ---
Work/School Excuse Work/School Excuse for:: Patient Please excuse this person from:: Work From: 08/17/19 through: 08/20/19 - Light duty until follow up with PCP Restrictions: Light Duty
--- NOTE | 2019-08-17 14:02 | PHA.DC.MR ---
Pharmacy Service has performed discharge medication reconciliation for this patient. The patient's discharge medication list was reviewed for discrepancies and discrepancies were resolved. Home Medications Lisinopril [Zestril] 20 mg PO DAILY 08/16/19
[2019-08-17 14:18] VITALS: BP 139/63; PULSE 57; RESP 16; TEMP 36.6; O2SAT 95
== END 2019-08-17 15:12 | disposition home or self-care (01) ==
LOC: ED 20:05 → PCU 20:39
PROVIDERS: Admitting Provider Hospitalist; Emergency Provider Emergency Medicine; PCP Family Medicine; Visit Provider Family Medicine
DX: R07.89 Other chest pain (principal); H91.90 Unspecified hearing loss, unspecified ear; I10 Essential (primary) hypertension; Z79.899 Other long term (current) drug therapy; R06.02 Shortness of breath; E11.9 Type 2 diabetes mellitus without complications; R94.31 Abnormal electrocardiogram [ECG] [EKG]; R00.1 Bradycardia, unspecified
CPT/HCPCS: 36415; 71045; 78452; 80048; 80061; 84484; 85025; 93005; 93017; 96361; 96374; 96375; 99218; 99285; A9500; J7030; A4216; G0378; J2405; J2785

== ENCOUNTER → 2020-06-12 15:19 | Outpatient (CLI) | payer BC, MEDICARE, SELFPAY ==
[2019-08-16 21:40] VITALS: BMI 27.3
--- NOTE | 2020-06-12 09:40 | FLU_PTH ---
PATIENT: LUIS ENRIQUE GARCIA LOC: [facility] U#:[id number] AGE/SX: 65/F ROOM: RE06/12/[address]: Dr. Talib Devlin MD : 1960 BED: DIS: SPEC #: [id number] RECD: 06/12/20 09:40 STATUS: SYLVIA REQ #: [id number] LORRAINE: 06/12/20 09:[address]: Aparna Hu DEPT: CYTOLOGY RECD BY: Anna Orozco ENTERED: 06/13/20 08:08 SP TYPE: Fluid OTHR DR: Dr. Talib Devlin MD Tissues: A - Thyroid gland, NOS B - Thyroid gland, NOS Procedures: Special Stain Group II Surgery Specimen Level IV Cytospin Fluid Comments: @ Ordering doctor for SSII edited from to DR.LWANG Palafox by MARIBELL at 06/13/20 1344 @ Ordering doctor for SUIV edited from to DR.LWANG Palafox by MARIBELL at 06/13/20 1344 @ Ordering doctor for CYSPIN edited from to DR.LWANG Palafox by MARIBELL at 06/13/20 1344 @ Submitting doctor edited from to DR.LWANG Palafox by MARIBELL at 06/13/20 1344 HEADER OPERATION: Ultrasound-guided right thyroid fine needle aspiration PRE-OP DIAGNOSIS: Thyroid nodules TISSUE SUBMITTED: A - FNA right thyroid fluid for cytology, B - FNA right thyroid slides x6 DIAGNOSIS CYTOLOGY A. Right thyroid nodule fluid, ultrasound-guided FNA (cytospin and cell block): Benign follicular cells noted. B. Right thyroid nodule, ultrasound-guided FNA (smears): Consistent with benign follicular nodule. Adequate for evaluation. See comment. SJ:danisha 06/14/2020 COMMENT Correlation with clinical, radiologic findings and appropriate follow up are necessary. CYTOLOGY STUDY Slides are reviewed. CYTOLOGY GROSS A - Received is 30 ml of brown, cloudy fluid labeled with the patient's name and and designated per the requisition as right thyroid. Submitted for cytology preparation including cell block. B - Received are six smears labeled with the patient's name and designated per the requisition as right thyroid. Submitted for staining. / danisha 06/13/2020 TC:5 CPT: 68637, 47551, 95555
== END ==
PROVIDERS: PCP Family Medicine; Referring Provider Family Medicine; Visit Provider Family Medicine
DX: E04.2 Nontoxic multinodular goiter (principal)
CPT/HCPCS: 88108; 88305; 88313

== ENCOUNTER 2021-02-08 21:30 | Emergency (ER) | payer OTHER, MEDICARE, SELFPAY ==
[2021-02-08 21:31] VITALS: BP 138/77; PULSE 68; RESP 15; TEMP 36.3; O2SAT 99; BMI 28.3
[2021-02-08] MEDS: Lidocaine 1% (20 ml mdv) 20 ML Vial INFILT (22:51)
--- NOTE | 2021-02-08 23:49 | EDS_ITS ---
HPI History of Present Illness Chief Complaint: Abscess Narrative Narrative: Patient presenting due to concern for an abscess on the finger. Patient states over the course of the last 2 to 3 days she has developed a area of swelling over the small digit on her right hand. She denies any injury. She denies any foreign bodies. States that it is moderately painful worse with palpation and movement. She denies constitutional symptoms such as fever. She denies any history of immunosuppression. View of systems otherwise negative. 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 [facility] Home Medications lisinopril 30 mg PO DAILY 08/16/19 [History Last Taken 08/16/19] metoprolol succinate 12.5 mg PO DAILY 02/08/21 [History Last Taken Unknown] sulfamethoxazole-trimethoprim [Bactrim DS] 1 tab PO BID #10 tab 02/08/21 [Rx Last Taken Unknown] Allergy/AdvReac Type Severity Reaction Status Date / Time latex Allergy NEEDS Verified 02/08/21 21:35 FOLLOW-UP Social History Smoking Status: Never smoker ROS ROS ED Constitutional Constitutional ED: Denies fever(s) Respiratory/Chest Respiratory/Chest: Denies dyspnea Gastrointestinal Gastrointestinal: Denies nausea or vomiting Musculoskeletal Musculoskeletal: Denies myalgias Integumentary Reports abscess Neurologic Neurologic: Denies paresthesias or weakness EXAM Physical Exam Const Vital Signs: 02/08/21 21:31 Temperature 97.3 F L Temperature Source Temporal Pulse Rate 68 Respiratory Rate 15 Blood Pressure 138/77 H Blood Pressure Mean 97 Pulse Ox 99 Oxygen Delivery Method Room Air Positive well nourished and well developed General Appearance ED: well developed and NAD Eyes EOMs intact bilaterally Resp normal respiratory effort Cardio regular rate and regular rhythm Rate: other Other Details: 2+ radial pulses Extremity Extremity Narrative: Examination patient's right hand shows a area of fluctuance over the palmar surface on the ulnar side of the patient's small digit. No significant surrounding erythema or lymphangitic streaking. Normal range of motion. This is tender to palpation. Neuro oriented x3 Sensorium / Orientation: alert Skin no rashes or lesions noted MDM MDM MDM Narrative Medical decision making narrative: Patient presented with an abscess over her finger. It was incised and drained as noted in the procedure note. Patient be placed on a short course of Bactrim. Patient will follow up with primary care for wound check, she was educated on signs and symptoms which to return. Procedures Other Procedures Procedure(s): Patient was given written consent for incision and drainage of the abscess over her finger. This does not appear to be a felon as there is no diffuse firmness of the patient's pulp of her finger, but only is a localized area of fluctuance. Patient's finger was anesthetized using a digital block. Good anesthesia was obtained. The area was prepped with Betadine and was draped in a sterile fashion. 11 blade was utilized to do a stab incision over the greatest area of fluctuance. Purulent material was expressed. There was a moderate amount of bleeding, so a finger tourniquet was then placed. Wound was explored I was unable to identify any foreign materials. I did trim some devitalized skin, no more than 5 mm?. Vaseline gauze was placed over top of the wound given its bleeding, cotton Kerlix was placed around the finger, and then this was secured in place with Coban. Tourniquet was then released and there was good hemostasis. Patient tolerated this well. Discharge Plan Triage Chief Complaint: Abscess ED Provider: Charly Juarez Dx/Rx/DC Orders Clinical Impression: Abscess Instructions: ED Abscess Incision And Drainage Prescriptions: New sulfamethoxazole-trimethoprim [Bactrim DS] 800-160 mg tablet 1 tab PO BID Qty: 10 RF: 0 No Action lisinopril 20 MG tablet 30 mg PO DAILY RF: 0 metoprolol succinate 25 mg tablet extended release 24 hr 12.5 mg PO DAILY RF: 0 Primary Care Provider: Talib Devlin Referrals: Talib Devlin MD [Primary Care Provider] - 3-5 Days Disposition Disposition: Home, Self Care
[2021-02-08] MEDS: Smz/Tmp Ds Tablet 1 TABLET PO (23:55)
[2021-02-09] VITALS: BP 132/67; PULSE 79; RESP 18
== END 2021-02-09 00:01 | disposition home or self-care (01) ==
PROVIDERS: Emergency Provider Emergency Medicine; PCP Family Medicine
DX: L02.511 Cutaneous abscess of right hand (principal)
CPT/HCPCS: 26010; 10060; 99283

== ENCOUNTER 2021-02-26 19:50 | Emergency (ER) | payer OTHER, MEDICARE, SELFPAY ==
[2021-02-26 19:52] VITALS: BP 185/86; PULSE 74; RESP 18; TEMP 36.6; O2SAT 96; BMI 26.5
--- NOTE | 2021-02-26 21:00 | EX.ED.DYSGE1 ---
HPI History of Present Illness Chief Complaint: Abscess Informant: patient Onset/Context/Timing Onset: Weeks Location: R small finger Current Severity: Mild Worsened by: nothing Relieved by: nothing Associated Symptoms Associated Symptoms: none Narrative Narrative: Patient had an I&D of this finger infection earlier this month. She has been taking clindamycin but the wound/infection seems to have recurred. She is not having fever or systemic symptoms. Prior similar symptoms: Yes Recent Illness/Hospitalization: No PFSH PFSH Home Medications lisinopril 30 mg PO DAILY 08/16/19 [History Last Taken 08/16/19] metoprolol succinate 12.5 mg PO DAILY 02/08/21 [History Last Taken Unknown] cephalexin 500 mg PO Q6 #40 capsule 02/26/21 [Rx Last Taken Unknown] clindamycin HCl 300 mg PO 4X/DAY 02/26/21 [History Last Taken Unknown] sulfamethoxazole-trimethoprim [Bactrim DS] 1 tab PO Q12H #20 tab 02/26/21 [Rx Last Taken Unknown] Allergy/AdvReac Type Severity Reaction Status Date / Time latex Allergy NEEDS Verified 02/26/21 19:55 FOLLOW-UP spicy food Allergy PT UNSURE Uncoded 02/26/21 19:55 OF REACTION Surgical History History of foot surgery Social History Smoking Status: Never smoker ROS ROS ED Constitutional Constitutional ED: Denies chills or fever(s) Eyes Eyes: Denies change in vision ENT ENT ED: Denies ear pain Cardiovascular Cardiovascular: Denies chest pain Respiratory/Chest Respiratory/Chest: Denies dyspnea Gastrointestinal Gastrointestinal: Denies abdominal pain Genitourinary Genitourinary ED: Denies dysuria Musculoskeletal Musculoskeletal: Denies myalgias Integumentary Reports abscess; Denies rash Neurologic Neurologic: Denies headache(s), paresthesias or weakness Psychiatric Psychiatric: Denies depression Endocrine Endocrinology: Denies polyuria Allergic/Immunologic Allergic/Immunologic ED: Denies urticaria EXAM Physical Exam Const Vital Signs: 02/26/21 19:52 Temperature 97.9 F Temperature Source Temporal Pulse Rate 74 Respiratory Rate 18 Blood Pressure 185/86 H Blood Pressure Mean 119 Pulse Ox 96 Oxygen Delivery Method Room Air Positive well nourished and well developed General Appearance ED: well developed HEENT Negative for trauma Eyes EOMs intact bilaterally Neck supple Extremity General Extremety ED: Yes edema and tenderness General Extremity: edema Neuro oriented x3 Sensorium / Orientation: alert Psych mental status grossly normal Skin Skin Narrative: 1 cm area of induration/nodule to the distal right small finger. No surrounding warmth or drainage. Joints normal. MDM MDM MDM Narrative Medical decision making narrative: Patient has a small abscess to her finger. This was drained in the ED already and is not improving. I will have the patient discontinue her clindamycin and switch to Bactrim and Keflex. Warm soaks. Will refer to hand surgery, Dr. Muhammad for definitive care. Return for new or worsening issues. Impression #1 right small finger abscess Discharge Plan Triage Chief Complaint: Abscess ED Provider: Karsten Clay Dx/Rx/DC Orders Instructions: ED Abscess Antibiotic Treatment Only Prescriptions: New sulfamethoxazole-trimethoprim [Bactrim DS] 800-160 mg tablet 1 tab PO Q12H Qty: 20 RF: 0 cephalexin 500 mg capsule 500 mg PO Q6 Qty: 40 RF: 0 No Action lisinopril 20 MG tablet 30 mg PO DAILY RF: 0 metoprolol succinate 25 mg tablet extended release 24 hr 12.5 mg PO DAILY RF: 0 clindamycin HCl 300 mg capsule 300 mg PO 4X/DAY RF: 0 Primary Care Provider: Talib Devlin Referrals: Mark Muhammad MD [STAFF PHYSICIAN] - Disposition Disposition: Home, Self Care
[2021-02-26] MEDS: Cephalexin 250 MG Capsule 500 MG PO (21:26)
[2021-02-26] MEDS: Smz/Tmp Ds Tablet 1 TABLET PO (21:26)
[2021-02-26 21:31] VITALS: TEMP -7.7; TEMP 18
== END 2021-02-26 21:40 | disposition home or self-care (01) ==
LOC: ED 21:10
PROVIDERS: Emergency Provider Emergency Medicine; PCP Family Medicine
DX: L02.511 Cutaneous abscess of right hand (principal)
CPT/HCPCS: 99283

== ENCOUNTER 2021-03-16 09:00 | Inpatient (IN) | payer OTHER, MEDICARE, SELFPAY ==
[2021-03-16] VITALS (8 sets, daily range): BP systolic 117–154; BP diastolic 60–73; PULSE 63–79; RESP 14–18; TEMP 36.1–37.1; O2SAT 96–99; BMI 27.3; BMI 27.6
[2021-03-16] MEDS: 0.9% Normal Saline 1,000 ML 1000 ML IV (09:24)
--- NOTE | 2021-03-16 09:25 | CT_ITS ---
EXAM: CT ABDOMEN AND PELVIS WITH INTRAVENOUS CONTRAST : 1960 CLINICAL INDICATION: LLQ pain, diarrhea x 3 days TECHNIQUE: Helically acquired images were obtained of the abdomen and pelvis with intravenous contrast. This CT exam was performed using one or more of the following dose reduction techniques: automated exposure control, adjustment of the mA and/or kV according to patient size, and/or use of iterative reconstruction technique. This report was created using [employer] report generation technology. CONTRAST: IV 100mL Isovue-300 COMPARISON: None. FINDINGS: LOWER THORAX: Unremarkable. Lung bases are clear. No cardiomegaly. No significant pericardial effusion. ABDOMEN: LIVER: Unremarkable. Homogeneous. No focal mass. GALLBLADDER AND BILE DUCTS: Unremarkable. No calcified gallstones. No gallbladder distention or wall edema. No intra- or extrahepatic biliary ductal dilation. PANCREAS: Unremarkable. No focal cystic or solid mass. SPLEEN: Unremarkable. Normal size without focal cystic or solid mass. ADRENALS: Unremarkable. No nodules. KIDNEYS AND URETERS: Unremarkable. Normal renal size and position. No hydronephrosis. STOMACH AND BOWEL: There is mild diffuse thickening of the wall of the colon which may represent pancolitis perhaps pseudomembranous colitis. There is a trace amount of free fluid within the pelvis. No stomach or bowel distention. PELVIS: APPENDIX: No evidence of acute appendicitis. BLADDER: Unremarkable. REPRODUCTIVE: Unremarkable as visualized. No mass. ABDOMEN and PELVIS: INTRAPERITONEAL SPACE: See above. BONES/JOINTS: Unremarkable. No suspicious lytic or blastic abnormality. SOFT TISSUES: Unremarkable. No discrete abdominal or pelvic wall hernia. VASCULATURE: Unremarkable. Abdominal aorta is non-dilated. LYMPH NODES: Unremarkable. No enlarged lymph nodes. OTHER FINDINGS: There is no obstruction or perforation. CT/Abdomen/Pelvis W IV Cont ONLY IMPRESSION: Diffuse thickening of the wall the colon which may represent pancolitis perhaps pseudomembranous colitis. There is a small amount of free fluid in the pelvis. Individualized dose optimization techniques were used for this CT. at 1106 Reported and signed by: Tyler Aguillon MD Electronically Signed: Tyler Aguillon MD at 11:05 EDT Tel , Service support ,
--- NOTE | 2021-03-16 09:27 | EDS_ITS ---
HPI History of Present Illness Chief Complaint: Abn Labs Informant: patient Narrative Narrative: 61-year-old female presenting from her doctor's office due to abnormal labs, elevated white count. Patient has been having diarrhea since Friday. She denies blood in her stool. She complains of lower abdominal cramping. She was recently on clindamycin and Bactrim and Keflex for a finger infection. Her finger is improving and she is no longer on antibiotics. Recent Illness/Hospitalization: No PFSH PFSH Medical History (Updated 03/16/21 @ 11:[address] Mar Vargas MD) Deaf HTN (hypertension) Home Medications lisinopril 30 mg PO DAILY 08/16/19 [History Last Taken 08/16/19] metoprolol succinate 12.5 mg PO DAILY 02/08/21 [History Last Taken Unknown] cephalexin 500 mg PO Q6 #40 capsule 02/26/21 [Rx Last Taken Unknown] clindamycin HCl 300 mg PO 4X/DAY 02/26/21 [History Last Taken Unknown] sulfamethoxazole-trimethoprim [Bactrim DS] 1 tab PO Q12H #20 tab 02/26/21 [Rx Last Taken Unknown] Allergy/AdvReac Type Severity Reaction Status Date / Time latex Allergy NEEDS Verified 03/16/21 09:01 FOLLOW-UP spicy food Allergy PT UNSURE Uncoded 03/16/21 09:01 OF REACTION Surgical History History of foot surgery Social History Smoking Status: Never smoker ROS ROS ED Constitutional Constitutional ED: Denies fever(s) Eyes Eyes: Denies change in vision ENT ENT ED: Denies rhinorrhea or sore throat Cardiovascular Cardiovascular: Denies chest pain or palpitations Respiratory/Chest Respiratory/Chest: Denies cough or dyspnea Gastrointestinal Gastrointestinal: Reports abdominal pain and diarrhea; Denies nausea or vomiting Genitourinary Genitourinary ED: Denies dysuria Musculoskeletal Musculoskeletal: Denies myalgias Integumentary Denies rash Neurologic Neurologic: Denies headache(s) EXAM Physical Exam Const Vital Signs: 03/16/21 09:01 03/16/21 09:38 Temperature 97.1 F L 97 F L Temperature Source Temporal Temporal Pulse Rate 79 79 Respiratory Rate 14 14 Blood Pressure 117/60 117/60 Blood Pressure Mean 79 79 Pulse Ox 97 97 Oxygen Delivery Method Room Air Room Air Positive well nourished and well developed General Appearance ED: well developed HEENT Reports normocephalic and head/scalp atraumatic Eyes PERRL and EOMs intact bilaterally Neck supple General: Negative for tenderness Chest Wall inspection of chest normal Resp normal respiratory effort and clear to auscultation bilaterally Cardio regular rate and regular rhythm GI non-distended Palpation: soft and tender LLQ; Negative for guarding or rebound tenderness present no CVA tenderness Extremity normal to inspection Neuro oriented x3 Sensorium / Orientation: alert Psych mental status grossly normal MDM MDM MDM Narrative Medical decision making narrative: Patient was given IV fluids, morphine, Zofran. White count is 12.7. Potassium 3.0. She was given potassium oral replacement. Urinalysis unremarkable. CT abdomen pelvis shows diffuse t hickening of the wall the colon which may represent pancolitis perhaps pseudomembranous colitis. Stool studies are pending. Patient was given Flagyl IV. She continues to have abdominal tenderness on reexam. Discussed with hospitalist for observation. Lab Data Attestation: I reviewed the patient's lab results. Labs: Laboratory Results - last 24 hr 03/16/21 03/16/21 03/16/21 09:40 09:40 10:55 WBC 12.7 H RBC 4.62 Hgb 13.7 Hct 39.5 MCV 85.5 MCH 29.7 MCHC 34.7 RDW Std Deviation 39.3 RDW Coeff of Ivy 12.8 Plt Count 247 MPV 9.4 Immature Gran % (Auto) 0.600 Neut % (Auto) 75.3 H Lymph % (Auto) 15.0 L [place] % (Auto) 6.6 Eos % (Auto) 2.2 Baso % (Auto) 0.3 Absolute Neuts (auto) 9.6 H Absolute Lymphs (auto) 1.90 Nucleated RBC % 0 Sodium 138 Potassium 3.0 L Chloride 104 Carbon Dioxide 29.0 Anion Gap 5 BUN 11 Creatinine 0.95 Estim Creat Clear Calc 52.09 Est GFR (MDRD) Af Amer 77 Est GFR (MDRD) Non-Af 64 BUN/Creatinine Ratio 11.5 Glucose 120 H Calcium 8.8 Total Bilirubin 0.90 AST 15 ALT 20 Alkaline Phosphatase 104 Total Protein 7.8 Albumin 3.3 Globulin 4.5 H Albumin/Globulin Ratio 0.7 L Urine Color Yellow Urine Clarity Sl. Cloudy Urine pH 6.5 Ur Specific [place] 1.010 Urine Protein Negative Urine Glucose (UA) Normal Urine Ketones Negative Urine Occult Blood Negative Urine Nitrite Negative Urine Bilirubin Negative Urine Urobilinogen Normal Ur Leukocyte Esterase 25 H Urine RBC 0 SEEN Urine WBC 0-5 SEEN Ur Squamous Epith Cells 0-5 SEEN Urine Bacteria 0 SEEN Urine Mucus 0 SEEN Radiography Diagnostic Testing: Clinical Impression(s) from Imaging Studies Abdomen/Pelvis CT 03/16/21 09:25 IMPRESSION: Diffuse thickening of the wall the colon which may represent pancolitis perhaps pseudomembranous colitis. There is a small amount of free fluid in the pelvis. Individualized dose optimization techniques were used for this CT. at 1106 Reported and signed by: Tyler Aguillon MD Electronically Signed: Tyler Aguillon MD at 11:05 EDT Tel , Service support , Discharge Plan Dx/Rx/DC Orders Clinical Impression: Pancolitis, Diarrhea Disposition Disposition: Acute Care [facility]
[2021-03-16 09:50] LABS: Absolute Neutrophil Count 9.6 X10^3/uL (2.0-7.7); Basophil# 0.04 X10^3/uL; Basophil% 0.3 % (0-1); Eosinophil# 0.28 X10^3/uL; Eosinophils% 2.2 % (0-5); Hematocrit 39.5 % (37-47); Hemoglobin 13.7 g/dL (12.0-15.0); Mean Corp Hgb Conc 34.7 g/dL (32-36); Mean Corpuscular Hgb 29.7 pg (27.0-32.0); Mean Corpuscular Volume 85.5 fL (81-99); Mean Platelet Vol. 9.4 fl (6.2-12.0); Monocyte# 0.84 X10^3/uL; Monocyte% 6.6 % (0-10); NRBC Flagged by Analyzer 0 % (0-5); Neutrophil # 9.55 X10^3/uL (2.7-7.7); Neutrophil % 75.3 % (47-70); Platelet Count 247 K/mm3 (150-450); RBC Distribution Width CV 12.8 % (11.6-14.6); RBC Distribution Width SD 39.3 fl (35.1-43.9); Red Blood Count 4.62 M/mm3 (4.2-5.4); White Blood Count 12.7 K/mm3 (4.4-11.0)
[2021-03-16 10:17] LABS: ALB/GLOB Ratio 0.7 RATIO (0.9-2.4); AST(SGOT) 15 U/L (15-37); Alanine Aminotransfer ALT/SGPT 20 U/L (13-56); Albumin, Serum 3.3 g/dL (3.2-5.0); Alkaline Phosphatase 104 U/L (45-117); Anion Gap 5 (5-15); BUN 11 mg/dL (7-18); BUN/Creat Ratio 11.5 RATIO (10-20); Calcium,Total 8.8 mg/dL (8.5-10.1); Chloride 104 mmol/L (98-107); Creatinine, Serum 0.95 mg/dL (0.55-1.02); EST Glomerular Filtration Rate 64 mL/min (>60); Est Glom Filt Rate - Afr Amer 77 mL/min (>60); Estimated Creatinine Clearance 52.09 ml/min; Globulin 4.5 g/dL (2.2-4.2); Glucose 120 mg/dL (74-106); Protein, Total 7.8 g/dL (6.4-8.2); Sodium Level 138 mmol/L (136-145)
[2021-03-16 11:00] LABS: Bacteria 0 SEEN /hpf (None Seen); Mucous, Urine 0 SEEN /hpf (<or=2+); Red Blood Cells-Urine 0 SEEN /hpf (0-5)
[2021-03-16] MEDS: Morphine 4 MG/ML Syringe IV (11:23)
[2021-03-16] MEDS: Ondansetron 4 MG/2 ML Vial IV ×2 (11:23→22:54)
[2021-03-16 11:27] LABS: Color, Urine Yellow (Yellow); Glucose, Dipstick Normal (Normal); Ketone-Dipstick Negative (Negative); Leukocyte Esterase-Dipstick 25 /ul (Negative); Nitrite-Dipstick Negative (Negative); Occult Blood-Urine Negative /ul (Negative); Protein-Dipstick Negative (Negative); Urine Bilirubin Dipstick Negative (Negative); Urine Clarity Sl. Cloudy (Clear); Urine Urobilinogen Normal (Normal); Urine pH 6.5 (5.0 - 8.0)
[2021-03-16 11:35] LABS: Squamous Epithelial Cells - UA 0-5 SEEN /hpf (5-10); White Blood Cells 0-5 SEEN /hpf (0-5)
--- NOTE | 2021-03-16 12:00 | HP.PCM.HOS_ITS ---
HPI - General General Date of Admission: 03/16/21 HPI Narrative LUIS ENRIQUE GARCIA, is a 61 F with PMHx of HTN and deafness who presents to the ED on 03/16/2021 for abnormal labs. She was told by her PCP that her WBC was elevated and that she needed to come to the ED. She has had abdominal pain for 2 days and diarrhea of 1 week. Patient reports diarrhea has been getting worse over the last week, with abdominal pain starting the last 2 days. She has associated decrease in appetite. She denies nausea and vomiting. Of note, she has been getting clindamycin orally for the last 10 days for right hand digit 5 cellulitis. She denies any black or bloody stool. While in the ED, vital signs are stable. Initial labs showed WBC of 12 however during signout from the ED previous labs reported WBC of 23. Labs were otherwise largely unremarkable. CT abdomen and pelvis was obtained showed diffuse thickening of the wall of the colon concerning for pancolitis versus pseudomembranous colitis. Patient started on IV antibiotics in the ED, stool samples pending at time of admission. Patient admitted to medical floor for colitis in the setting of recent antibiotic use. Social history: No alcohol, no smoking, no drug use Surgical history: Abscess incision and drainage right hand digit 5, ankle surgery, tumor for removal Family history: Assessed, noncontributory [facility] Medical History (Updated 03/16/21 @ 12:[address] Fredi Robles DO) Deaf HTN (hypertension) Home Medications lisinopril 30 mg PO DAILY 08/16/19 [History Last Taken 08/16/19] metoprolol succinate 12.5 mg PO DAILY 02/08/21 [History Last Taken Unknown] Allergy/AdvReac Type Severity Reaction Status Date / Time latex Allergy NEEDS Verified 03/16/21 09:01 FOLLOW-UP spicy food Allergy PT UNSURE Uncoded 03/16/21 09:01 OF REACTION Surgical History History of foot surgery Social History Smoking Status: Never smoker ROS Constitutional Constitutional: Denies fever(s), headache(s) or weakness ENT HEENT: Denies abnormal hearing, dizziness, dysphagia or tinnitus Cardiovascular Cardiovascular: Denies chest pain, chest pain with activity, diaphoresis, dizziness, dyspnea, edema, fatigue, flutter in chest, orthopnea, pedal edema or syncope Respiratory/Chest Respiratory/Chest: Denies chest congestion, chest tightness, cough, dyspnea or wheezing Gastrointestinal Gastrointestinal: Reports abdominal pain, diarrhea and nausea; Denies coffee ground emesis, heartburn, hematemesis, hematochezia, melena or vomiting Genitourinary Genitourinary: Denies abdominal discomfort, dysuria or flank pain Musculoskeletal Musculoskeletal: Denies arthralgias, difficulty walking, myalgias, numbness or tingling Neurologic Neurologic: Denies abnormal movements, confusion, dizziness, focal weakness, syncope, tremor(s) or weakness Psychiatric Psychiatric: Denies anxiety, confusion or depression Vital Signs Vital Signs Vital Signs: 03/16/21 09:01 03/16/21 09:38 Temperature 97.1 F L 97 F L Temperature Source Temporal Temporal Pulse Rate 79 79 Respiratory Rate 14 14 Blood Pressure 117/60 117/60 Blood Pressure Mean 79 79 Pulse Ox 97 97 Oxygen Delivery Method Room Air Room Air Weight Weight: 70.1 kg Body Mass Index (BMI) 27.3 Physical Exam Const oriented x3 and no apparent distress General Appearance: cooperative, comfortable, well kempt and well developed Orientation / Consciousness: awake, oriented to person, oriented to place and oriented to time Exam Limitations: no limitations Nutritional Appearance: obese HEENT normocephalic, head/scalp atraumatic, hearing grossly normal bilaterally and oropharynx normal Eyes PERRL and EOMs intact bilaterally Neck supple General: normal visual inspection and trachea midline Lymph Lymphatic: no lymphadenopathy noted Chest inspection of chest normal and palpation of chest normal Resp normal respiratory effort and normal air movement Auscultation: clear to auscultation bilaterally Cardio regular rate, regular rhythm, S1 normal heart sound, S2 normal heart sound, no murmurs, no rub and no gallops GI soft to palpation and non-distended Auscultation: hyperactive bowel sounds Palpation: tender Extremity normal to inspection, normal capillary refill and no pedal edema Peripheral Pulses: Yes pulses 2+ throughout Skin no rashes or lesions noted General Skin Exam: no breakdown Neuro oriented x3, CN's II-XII intact bilaterally and moves all extremities Psych mental status grossly normal and affect normal Results Lab / Micro Data Result Diagrams: 03/16/21 09:40 03/16/21 09:40 Labs: Laboratory Results - last 24 hr 03/16/21 09:40: WBC 12.7 H, RBC 4.62, Hgb 13.7, Hct 39.5, MCV 85.5, MCH 29.7, MCHC 34.7, RDW Std Deviation 39.3, RDW Coeff of Ivy 12.8, Plt Count 247, MPV 9.4, Immature Gran % (Auto) 0.600, Neut % (Auto) 75.3 H, Lymph % (Auto) 15.0 L, [place] % (Auto) 6.6, Eos % (Auto) 2.2, Baso % (Auto) 0.3, Absolute Neuts (auto) 9.6 H, Absolute Lymphs (auto) 1.90, Nucleated RBC % 0 03/16/21 09:40: Sodium 138, Potassium 3.0 L, Chloride 104, Carbon Dioxide 29.0, Anion Gap 5, BUN 11, Creatinine 0.95, Estim Creat Clear Calc 52.09, Est GFR (MDRD) Af Amer 77, Est GFR (MDRD) Non-Af 64, BUN/Creatinine Ratio 11.5, Glucose 120 H, Calcium 8.8, Total Bilirubin 0.90, AST 15, ALT 20, Alkaline Phosphatase 104, Total Protein 7.8, Albumin 3.3, Globulin 4.5 H, Albumin/Globulin Ratio 0.7 L 03/16/21 10:55: Urine Color Yellow, Urine Clarity Sl. Cloudy, Urine pH 6.5, Ur Specific [place] 1.010, Urine Protein Negative, Urine Glucose (UA) Normal, Urine Ketones Negative, Urine Occult Blood Negative, Urine Nitrite Negative, Urine Bi lirubin Negative, Urine Urobilinogen Normal, Ur Leukocyte Esterase 25 H, Urine RBC 0 SEEN, Urine WBC 0-5 SEEN, Ur Squamous Epith Cells 0-5 SEEN, Urine Bacteria 0 SEEN, Urine Mucus 0 SEEN Micro: Microbiology 03/16/21 09:45 Nasal Secretion SARS-CoV-2 Antigen (Rapid) - Final Radiology Impression Abdomen/Pelvis CT 03/16/21 09:25 IMPRESSION: Diffuse thickening of the wall the colon which may represent pancolitis perhaps pseudomembranous colitis. There is a small amount of free fluid in the pelvis. Individualized dose optimization techniques were used for this CT. at 1106 Reported and signed by: Tyler Aguillon MD Electronically Signed: Tyler Aguillon MD at 11:05 EDT Tel , Service support , Assessment & Plan Assessment/Plan (1) Intractable abdominal pain: (2) Pancolitis: (3) Diarrhea: (4) Hypertension: (5) Deafness: PLAN: #Intractable abdominal pain #Diarrhea #Pancolitis #Recent antibiotic use * Patient recently finished course of antibiotics of clindamycin for cellulitis * Morphine as needed for abdominal pain * C. difficile stool study pending, if positive will need to be started on oral vancomycin * Stool pathogen panel pending * Blood cultures pending * Broad coverage with Cipro and Flagyl IV * Clear liquid diet * Zofran as needed for nausea and/or vomiting * Gentle IVF * Will consult GI for further evaluation and recommendations #Hypertension * Resume home medications #DVT prophylaxis * Lovenox subq Charges/Coding Visit Charges OBSV E&M: 54231 Initial observation care L3
[2021-03-16] MEDS: Potassium Chloride Oral Tablet 20 MEQ 40 MEQ PO (12:14)
[2021-03-16] MEDS: metroNIDAZOLE 500 MG/100 ML BAG 100 MG IV ×2 (12:23→22:49)
[2021-03-16] MEDS: Ensure Clear 120 ML Liquid PO ×2 (13:34→17:06)
[2021-03-16] MEDS: Lactated Ringers 1,000 ML 75 ML IV (13:37)
[2021-03-16] MEDS: Ciprofloxacin 400 MG/200 ML BAG 200 MG IV ×2 (14:57→22:49)
[2021-03-16] MEDS: Morphine 2 MG/ML Syringe 1 MG IV (18:08)
--- NOTE | 2021-03-16 19:42 | NURSING ---
pt up ad hien in bathroom
--- NOTE | 2021-03-16 19:43 | CON.PCM.GI_ITS ---
HPI Consult Data Date of Consult: 03/16/21 HPI Narrative HPI Narrative: LUIS ENRIQUE GARCIA, is a 61 F who presents presents from her doctor's office due to abnormal labs, elevated white count. She has been having diarrhea since Friday. She denies blood in her stool. She complains of lower abdominal cramping. She was recently on clindamycin and Bactrim and Keflex for a finger infection. Her finger is improving and she is no longer on antibiotics. On evaluation the ED . she was hypertensive and tachycardic. Her labs show an elevated white blood cell count. She had a CT scan abdomen pelvis that displayed Diffuse thickening of the wall the colon which may represent pancolitis perhaps pseudomembranous colitis. There is a small amount of free fluid in the pelvis. [facility] Medical History (Updated 03/16/21 @ 12:[address] Fredi Robles DO) Deaf HTN (hypertension) Home Medications lisinopril 30 mg PO DAILY 08/16/19 [History Last Taken 08/16/19] metoprolol succinate 12.5 mg PO DAILY 02/08/21 [History Last Taken Unknown] Allergy/AdvReac Type Severity Reaction Status Date / Time latex Allergy NEEDS Verified 03/16/21 09:01 FOLLOW-UP spicy food Allergy PT UNSURE Uncoded 03/16/21 09:01 OF REACTION Surgical History History of foot surgery Social History Smoking Status: Never smoker ROS Review of Systems ROS Unobtainable: other Constitutional Constitutional: Denies fatigue, fever(s), poor appetite, weight gain or weight loss ENT HEENT: Denies mouth lesions Cardiovascular Cardiovascular: Denies abdominal bloating, abdominal edema or abdominal pain Respiratory/Chest Respiratory/Chest: Denies change in mental status, change in phlegm color, chest congestion or chest tightness Gastrointestinal Gastrointestinal: Reports bloating, cramping and diarrhea; Denies belching, change in bowel habits, change in stool character, chewing difficulty, coffee ground emesis, constipation, dyspepsia, dysphagia, early satiety, excessive flatus, fecal incontinence, heartburn, hematemesis, hematochezia, hemorrhoids, loose stools, melena, nausea, odynophagia, rectal bleeding, tenesmus, vomiting or weight changes Genitourinary Genitourinary: Denies abdominal discomfort, burning urination or itching Musculoskeletal Musculoskeletal: Reports as per HPI; Denies muscle weakness or myalgias Integumentary Integumentary: Denies jaundice Neurologic Neurologic: Denies lack of coordination or weakness Psychiatric Psychiatric: Denies confusion, depression, memory loss, mood swings, paranoia or suicidal ideation Endocrine Endocrinology: Denies systems reviewed and no addt'l complaints, except as documented Hematologic/Lymphatic Hematologic/Lymphatic: Denies anemia, easy bleeding, easy bruising or lymphadenopathy Allergic/Immunologic Allergic/Immunologic: Denies systems reviewed and no addt'l complaints, except as documented Physical Exam Const alert General Appearance: cooperative Orientation / Consciousness: oriented to person HEENT hearing grossly normal bilaterally Head and Scalp: normal to inspection Face and Sinus: face symmetric Nose: external nose normal Mouth: oral and palatal mucosa normal Eyes conjunctivae normal General Eye: normal appearance of both eyes Neck full ROM General: normal visual inspection Lymph Lymphatic: no lymphadenopathy noted Chest inspection of chest normal and palpation of chest normal Chest: symmetrical chest wall rise Resp normal respiratory effort Effort and Inspection: able to speak in complete sentences Cardio regular rate GI Auscultation: hyperactive bowel sounds Palpation: tender Percussion: normal to percussion Rectal Exam: deferred Neuro Speech: speech normal Gait (Neuro): normal gait Medical Records Data Medical Nutrition Assessment Dietitian: Malnutrition Criteria Met Start: 03/16/21 14:36 Freq: Status: Active Protocol: Document 03/16/21 14:37 JUS (Rec: 03/16/21 14:37 JUS [id number]) Nutrition Malnutrition Evidence of Malnutrition Exists Yes Malnutrition (severe): Acute Illness/Injury Evidenced By Suboptimal Energy Intake ( Severe),Weight Loss (Severe) Clinical Problem Acute Disease or Injury Related Malnutrition Etiology related to issues 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 / 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) 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600, Neut % (Auto) 75.3 H, Lymph % (Auto) 15.0 L, [place] % (Auto) 6.6, Eos % (Auto) 2.2, Baso % (Auto) 0.3, Absolute Neuts (auto) 9.6 H, Absolute Lymphs (auto) 1.90, Nucleated RBC % 0 03/16/21 09:40: Sodium 138, Potassium 3.0 L, Chloride 104, Carbon Dioxide 29.0, Anion Gap 5, BUN 11, Creatinine 0.95, Estim Creat Clear Calc 52.09, Est GFR (MDRD) Af Amer 77, Est GFR (MDRD) Non-Af 64, BUN/Creatinine Ratio 11.5, Glucose 120 H, Calcium 8.8, Total Bilirubin 0.90, AST 15, ALT 20, Alkaline Phosphatase 104, Total Protein 7.8, Albumin 3.3, Globulin 4.5 H, Albumin/Globulin Ratio 0.7 L 03/16/21 10:55: Urine Color Yellow, Urine Clarity Sl. Cloudy, Urine pH 6.5, Ur Specific [place] 1.010, Urine Protein Negative, Urine Glucose (UA) Normal, Urine Ketones Negative, Urine Occult Blood Negative, Urine Nitrite Negative, Urine Bilirubin Negative, Urine Urobilinogen Normal, Ur Leukocyte Esterase 25 H, Urine RBC 0 SEEN, Urine WBC 0-5 SEEN, Ur Squamous Epith Cells 0-5 SEEN, Urine Bacteria 0 SEEN, Urine Mucus 0 SEEN 03/16/21 11:58: Lactic Acid 1.0 Micro: Microbiology 03/16/21 13:05 Stool Enteric Bacteriology - Final 03/16/21 13:05 Stool C. difficile GDH Antigen & Toxins - Final 03/16/21 13:05 Stool C. difficile DNA Amplification - Final 03/16/21 09:45 Nasal Secretion SARS-CoV-2 Antigen (Rapid) - Final Radiology Impression Abdomen/Pelvis CT 03/16/21 09:25 IMPRESSION: Diffuse thickening of the wall the colon which may represent pancolitis perhaps pseudomembranous colitis. There is a small amount of free fluid in the pelvis. Individualized dose optimization techniques were used for this CT. at 1106 Reported and signed by: Tyler Aguillon MD Electronically Signed: Tyler Aguillon MD at 11:05 EDT Tel , Service support , Assessment & Plan Assessment/Plan (1) Pancolitis: PLAN: Differential diagnosis for pancolitis in the colon would be ulcerative colitis, ischemic colitis, infectious colitis and less likely Crohn's colitis. She should undergo colonoscopy for evaluation of the colon and the terminal ileum. She was explained alternatives, risk, benefits including metastatic bleeding, infection, sepsis, perforation, need for emergent surgery d eath. She will have an ASA of 1. I will also draw an ESR and CRP. Charges/Coding Visit Charges Inpatient E&M: 18907 Init Hosp L3
--- NOTE | 2021-03-16 20:20 | EKG12_ITS ---
Test Reason : PRE OP Blood Pressure : / mmHG Vent. Rate : 061 BPM Atrial Rate : 061 BPM P-R Int : 148 ms QRS Dur : 078 ms QT Int : 444 ms P-R-T Axes : 037 -16 -27 degrees QTc Int : 446 ms Normal sinus rhythm T wave abnormality, consider anterolateral ischemia Abnormal ECG When compared with ECG of 17-AUG-2019 05:54, No significant change was found Confirmed by HUANG RAZO, GOPI ([id number]), photographic editor MADAN ADAIR ([id number]) on 03/21/2021 10:01:16 AM Referred By: FRIEND Confirmed By:GOPI ENCINAS MD
--- NOTE | 2021-03-16 20:26 | NURSING ---
harrison has not arrived for pt administration
[2021-03-16] MEDS: Bisacodyl 5 MG Tablet 20 MG PO (21:25)
[2021-03-16] MEDS: Electrolyte Solution/Peg's 4000 ML 1000 ML PO (21:26)
[2021-03-17] VITALS (14 sets, daily range): BP systolic 96–130; BP diastolic 40–76; PULSE 54–103; RESP 12–18; TEMP 36.2–36.9; O2SAT 94–98
[2021-03-17] MEDS: metroNIDAZOLE 500 MG/100 ML BAG 100 MG IV ×3 (05:24→22:21)
[2021-03-17 07:49] LABS: Absolute Lymphocyte Count 1.69 X10^3/uL (0.83-4.51); Absolute Neutrophil Count 4.1 X10^3/uL (2.0-7.7); Basophil# 0.03 X10^3/uL; Basophil% 0.4 % (0-1); Eosinophil# 0.38 X10^3/uL; Eosinophils% 5.5 % (0-5); Hematocrit 34.3 % (37-47); Hemoglobin 11.7 g/dL (12.0-15.0); Lymphocyte # 1.69 X10^3/ul (0.83-4.51); Lymphocyte % 24.7 % (19-41); Mean Corp Hgb Conc 34.1 g/dL (32-36); Mean Corpuscular Hgb 29.9 pg (27.0-32.0); Mean Corpuscular Volume 87.7 fL (81-99); Mean Platelet Vol. 9.4 fl (6.2-12.0); Monocyte# 0.61 X10^3/uL; Monocyte% 8.9 % (0-10); NRBC Flagged by Analyzer 0 % (0-5); Neutrophil # 4.09 X10^3/uL (2.7-7.7); Neutrophil % 59.8 % (47-70); Platelet Count 227 K/mm3 (150-450); RBC Distribution Width CV 12.8 % (11.6-14.6); Red Blood Count 3.91 M/mm3 (4.2-5.4); White Blood Count 6.9 K/mm3 (4.4-11.0)
--- NOTE | 2021-03-17 07:50 | COLBX_PTH ---
PATIENT: LUIS ENRIQUE GARCIA LOC: MS3 U#:[id number] AGE/SX: 61/F ROOM: SD318 RE03/16/[address]: Dr. Aura Melo MD : 1960 BED: 1 DIS: 03/18/2021 SPEC #: [id number] RECD: 03/17/21 12:00 STATUS: SYLVIA RAE #: [id number] LORRAINE: 03/17/21 07:[address]: Rodrigo Estrada DEPT: SURGICAL PATHOLOGY RECD BY: Anna Orozco ENTERED: 03/19/21 07:58 SP TYPE: COLON BX OTHR DR: MD Dr. Fredi Donovan DO Dr. William Lago, MD Tissues: A - Ileum, NOS B - COLON BIOPSY C - Transverse colon D - Sigmoid colon biopsy E - Rectum, NOS Procedures: Surgery Specimen Level IV Comments: @ Ordering doctor for NHIIV edited from to @ by MARIBELL at 03/19/21 1008 @ Submitting doctor edited from to @ by RGOOD at 03/19/21 1008 HEADER OPERATION: Colonoscopy (MAC) PRE-OP DIAGNOSIS: Pancolitis TISSUE SUBMITTED: A - Terminal ileum biopsy, B - Random colonic biopsies, C - Transverse colon biopsy, D - Sigmoid colon biopsy, E - Rectal biopsy MICROSCOPIC DIAGNOSIS A. Terminal ileum, biopsy: No pathologic change. B. Colon, random biopsy: Focal acute colitis. See comment. C. Transverse colon, biopsy: Focal acute colitis. See comment. D. Sigmoid colon, biopsy: Focal acute colitis. See comment. E. Rectum, biopsy: Focal acute colitis. See comment. AM:danisha 03/20/2021 COMMENT B. Rare cryptitis is identified without crypt abscesses, granulomas, fissuring ulcers or transmural lymphoid aggregate. Clinical correlation is suggested. C. Focal acute cryptitis and rare crypt abscess is identified without granulomas, fissuring ulcers or transmural lymphoid aggregate. Clinical correlation is suggested. D. Rare cryptitis is identified without crypt abscesses, granulomas, fissuring ulcers or transmural lymphoid aggregate. Clinical correlation is suggested. E. Rare neutrophils are seen in glandular epithelium. There are no crypt abscesses, granulomas or transmural lymphoid aggregates. Clinical correlation is suggested. MICROSCOPIC DESCRIPTION Slides are reviewed. GROSS DESCRIPTION A - Received in fixative is one container labeled with the patient's name and designated terminal ileum biopsy. The specimen consists of two irregular fragments of light aguilar soft tissue that in aggregate measure 1 x 0.6 x 0.1 cm. The specimen is totally submitted in one cassette. B - Received in fixative is one container labeled with the patient's name and designated random colon biopsy. The specimen consists of multiple irregular fragments of light aguilar soft tissue that in aggregate measure 2 x 1 x 0.1 cm. The specimen is totally submitted in one cassette. C - Received in fixative is one container labeled with the patient's name and designated transverse colon biopsy. The specimen consists of multiple irregular fragments of light aguilar soft tissue that in aggregate measure 2 x 0.5 x 0.1 cm. The specimen is totally submitted in one cassette. D - Received in fixative is one container labeled with the patient's name and designated sigmoid colon biopsy. The specimen consists of multiple irregular fragments of light aguilar soft tissue that in aggregate measure 2.5 x 1 x 0.1 cm. The specimen is totally submitted in one cassette. E - Received in fixative is one container labeled with the patient's name and designated rectal biopsy. The specimen consists of two irregular fragments of light aguilar soft tissue that in aggregate measure 0.6 x 0.6 x 0.1 cm. The specimen is totally submitted in one cassette. / AM:danisha 03/19/21 TC:2 [facility]: [id number] [phone]
[2021-03-17 08:21] LABS: Anion Gap 5 (5-15); BUN 7 mg/dL (7-18); Calcium,Total 8.4 mg/dL (8.5-10.1); Chloride 108 mmol/L (98-107); Creatinine, Serum 0.78 mg/dL (0.55-1.02); EST Glomerular Filtration Rate 81 mL/min (>60); Est Glom Filt Rate - Afr Amer 97 mL/min (>60); Estimated Creatinine Clearance 63.45 ml/min; Glucose 109 mg/dL (74-106); Potassium 3.3 mmol/L (3.5-5.1); Sodium Level 141 mmol/L (136-145)
--- NOTE | 2021-03-17 09:34 | PCM.PN.HOSP ---
Subjective Subjective Follow-up on pancolitis: Patient was seen and examined. Denied any new complaints. Communication is via an gael on her phone. Objective Data Objective Data Vital Signs: Vital Signs Temp Pulse Resp BP Pulse Ox 98.2 F 70 12 120/59 L 94 03/17/21 07:21 03/17/21 07:24 03/17/21 07:21 03/17/21 07:21 03/17/21 07:21 Oxygen Delivery Method Room Air Weight: 70.76 kg Body Mass Index (BMI) 27.6 Intake & Output: Intake and Output for Last 24 Hours 03/15/21 03/16/21 03/17/21 23:59 23:59 23:59 Intake Total 3002.50 / 3002.50 507.5 / 507.5 Balance 3002.50 / 3002.50 507.5 / 507.5 Medical Nutrition Assessment Dietitian: Malnutrition Criteria Met Start: 03/16/21 14:36 Freq: Status: Active Protocol: Document 03/16/21 14:37 JUS (Rec: 03/16/21 14:37 JUS [id number]) Nutrition Malnutrition Evidence of Malnutrition Exists Yes Malnutrition (severe): Acute Illness/Injury Evidenced By Suboptimal Energy Intake ( Severe),Weight Loss (Severe) Clinical Problem Acute Disease or Injury Related Malnutrition Etiology related to issues 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 / 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 to meet est nutritional needs Signs/Symptoms as evidenced by <50% po intake X > 5 days and 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 Problem Recommendation Dietitian Recommendations/Changes Will continue ensure clear w/ medpass Rec diet as tolerated to transitional w/ goal of Regular No Added Salt diet Lab / Micro Data Result Diagrams: 03/17/21 07:38 03/17/21 07:38 Labs: Laboratory Results - last 24 hr 03/16/21 09:40: WBC 12.7 H, RBC 4.62, Hgb 13.7, Hct 39.5, MCV 85.5, MCH 29.7, MCHC 34.7, RDW Std Deviation 39.3, RDW Coeff of Ivy 12.8, Plt Count 247, MPV 9.4, Immature Gran % (Auto) 0.600, Neut % (Auto) 75.3 H, Lymph % (Auto) 15.0 L, [place] % (Auto) 6.6, Eos % (Auto) 2.2, Baso % (Auto) 0.3, Absolute Neuts (auto) 9.6 H, Absolute Lymphs (auto) 1.90, Nucleated RBC % 0 03/16/21 09:40: Sodium 138, Potassium 3.0 L, Chloride 104, Carbon Dioxide 29.0, Anion Gap 5, BUN 11, Creatinine 0.95, Estim Creat Clear Calc 52.09, Est GFR (MDRD) Af Amer 77, Est GFR (MDRD) Non-Af 64, BUN/Creatinine Ratio 11.5, Glucose 120 H, Calcium 8.8, Total Bilirubin 0.90, AST 15, ALT 20, Alkaline Phosphatase 104, Total Protein 7.8, Albumin 3.3, Globulin 4.5 H, Albumin/Globulin Ratio 0.7 L 03/16/21 10:55: Urine Color Yellow, Urine Clarity Sl. Cloudy, Urine pH 6.5, Ur Specific [place] 1.010, Urine Protein Negative, Urine Glucose (UA) Normal, Urine Ketones Negative, Urine Occult Blood Negative, Urine Nitrite Negative, Urine Bilirubin Negative, Urine Urobilinogen Normal, Ur Leukocyte Esterase 25 H, Urine RBC 0 SEEN, Urine WBC 0-5 SEEN, Ur Squamous Epith Cells 0-5 SEEN, Urine Bacteria 0 SEEN, Urine Mucus 0 SEEN 03/16/21 11:58: Lactic Acid 1.0 03/17/21 07:38: WBC 6.9, RBC 3.91 L, Hgb 11.7 L, Hct 34.3 L, MCV 87.7, MCH 29.9, MCHC 34.1, RDW Std Deviation 41.0, RDW Coeff of Ivy 12.8, Plt Count 227, MPV 9.4, Immature Gran % (Auto) 0.700, Neut % (Auto) 59.8, Lymph % (Auto) 24.7, [place] % (Auto) 8.9, Eos % (Auto) 5.5 H, Baso % (Auto) 0.4, Absolute Neuts (auto) 4.1, Absolute Lymphs (auto) 1.69, Nucleated RBC % 0 03/17/21 07:38: Sodium 141, Potassium 3.3 L, Chloride 108 H, Carbon Dioxide 28.0, Anion Gap 5, BUN 7, Creatinine 0.78, Estim Creat Clear Calc 63.45, Est GFR (MDRD) Af Amer 97, Est GFR (MDRD) Non-Af 81, BUN/Creatinine Ratio 9.0 L, Glucose 109 H, Calcium 8.4 L Micro: Microbiology 03/16/21 13:05 Stool Enteric Bacteriology - Final 03/16/21 13:05 Stool C. difficile GDH Antigen & Toxins - Final 03/16/21 13:05 Stool C. difficile DNA Amplification - Final 03/16/21 09:45 Nasal Secretion SARS-CoV-2 Antigen (Rapid) - Final Radiography Diagnostic Testing: Radiology Impression Abdomen/Pelvis CT 03/16/21 09:25 IMPRESSION: Diffuse thickening of the wall the colon which may represent pancolitis perhaps pseudomembranous colitis. There is a small amount of free fluid in the pelvis. Individualized dose optimization techniques were used for this CT. at 1106 Reported and signed by: Tyler Aguillon MD Electronically Signed: Tyler Aguillon MD at 11:05 EDT Tel , Service support , Physical Exam Narrative Physical exam: General: Alert, noncommunicative because of deafness, not pale, no joint HEENT: Atraumatic Oral: Moist Mucosa Neck: Supple Lungs: Clear to auscultation Cardiovascular: HS I+II, regular, no murmurs Abdomen: Bowel Sounds Present, Soft, Non Tender Extremities: No edema Neck supple Cardio no rub Assessment & Plan Assessment/Plan (1) Intractable abdominal pain: (2) Pancolitis: (3) Diarrhea: (4) Hypertension: (5) Deafness: PLAN: 1. Acute pancolitis, seen on CT of the abdomen and pelvis Status post colonoscopy today -findings showed congested mucosa in the distal ileum and sigmoid colon. Mucosal ulcerations that were biopsied. Stool for enteric panel is negative C. difficile antigen is positive but C. difficile toxin is negative WBC is normal Has been started on prednisone 40 mg daily Continue on IV Cipro and Flagyl for now 2. Hypokalemia, potassium 3.3, replace, recheck in 3. Hypertension, continue lisinopril Charges/Coding Visit Charges Inpatient E&M: 77627 Subs Hosp L3
--- NOTE | 2021-03-17 09:49 | OP.CCLET_ITS ---
01/31/2022 Talib Devlin Re : Colonoscopy procedure for Rachael Xiong Dear Claus This procedure was performed on Wednesday, March 17, 2021. My impressions and recommendations are as follows: Impressions : - Congested mucosa in the distal ileum. Biopsied. - Congested mucosa in the sigmoid colon. - Mucosal ulceration. Biopsied. - Mucosal ulceration. Biopsied. Recommendations : - [facility]. - Advance diet as tolerated today. - Use prednisone 40 mg PO once a day for 4 weeks. - Repeat colonoscopy date to be determined after pending pathology results are reviewed for surveillance based on pathology results. - Continue present medications. My findings are described in the full procedure note, which is enclosed. If I can be of further assistance, please feel free to contact me at . Sincerely, Rodrigo Estrada, 03/17/2021 9:48:32 AM This report has been signed electronically.
--- NOTE | 2021-03-17 09:49 | OP.COLON_ITS ---
Patient Name: Rachael Xiong Procedure Date: 03/17/2021 8:49 AM Date of : 1960 Age: 61 Procedure: Colonoscopy Indications: Generalized abdominal pain, Hematochezia Providers: Rodrigo Estrada DO Medicines: Propofol per Anesthesia Patient Profile: This is a 61 year old female. Refer to note in patient chart for documentation of history and physical. Last Colonoscopy: none. The patient's first colonoscopy is today. Complications: No immediate complications. Procedure: Pre-Anesthesia Assessment: - Prior to the procedure, a History and Physical was performed, and patient medications and allergies were reviewed. The patient is competent. The risks and benefits of the procedure and the sedation options and risks were discussed with the patient. All questions were answered and informed consent was obtained. Patient identification and proposed procedure were verified by the physician in the pre-procedure area. Mental Status Examination: alert and oriented. Airway Examination: normal oropharyngeal airway and neck mobility. Respiratory Examination: clear to auscultation. CV Examination: normal. Prophylactic Antibiotics: The patient does not require prophylactic antibiotics. Prior Anticoagulants: The patient has taken no previous anticoagulant or antiplatelet agents. ASA Grade Assessment: II - A patient with mild systemic disease. After reviewing the risks and benefits, the patient was deemed in satisfactory condition to undergo the procedure. The anesthesia plan was to use moderate sedation / analgesia (conscious sedation). Immediately prior to administration of medications, the patient was re-assessed for adequacy to receive sedatives. The heart rate, respiratory rate, oxygen saturations, blood pressure, adequacy of pulmonary ventilation, and response to care were monitored throughout the procedure. The physical status of the patient was re-assessed after the procedure. After I obtained informed consent, the scope was passed under direct vision. Throughout the procedure, the patient's blood pressure, pulse, and oxygen saturations were monitored continuously. The pediatric colonoscope was introduced through the anus and advanced to the terminal ileum. The colonoscopy was performed without difficulty. The patient tolerated the procedure well. The quality of the bowel preparation was good. Moderate Sedation: Moderate (conscious) sedation was administered by the endoscopy nurse and supervised by the endoscopist. The patient's oxygen saturation, heart rate, blood pressure and response to care were monitored. Total physician intraservice time was 15 minutes. Scope In: 9:16:32 AM Scope Withdrawal Time 0 hours 13 minutes 26 seconds Scope Out: 9:39:19 AM Total Procedure Duration Time 0 hours 22 minutes 47 seconds Findings: The perianal and digital rectal examinations were normal. A patchy area of the distal ileum was congested. This was biopsied with a cold forceps for histology. Verification of patient identification for the specimen was done. Estimated blood loss was minimal. An area of significantly congested mucosa was found in the sigmoid colon. A continuous area of nonbleeding ulcerated mucosa with no stigmata of recent bleeding was present in the transverse colon. Biopsies were taken with a cold forceps for histology. Verification of patient identification for the specimen was done. Estimated blood loss was minimal. A continuous area of nonbleeding ulcerated mucosa with no stigmata of recent bleeding was present in the sigmoid colon. Biopsies were taken with a cold forceps for histology. Verification of patient identification for the specimen was done. Estimated blood loss was minimal. Impression: - Congested mucosa in the distal ileum. Biopsied. - Congested mucosa in the sigmoid colon. - Mucosal ulceration. Biopsied. - Mucosal ulceration. Biopsied. Recommendation: - [facility]. - Advance diet as tolerated today. - Use prednisone 40 mg PO once a day for 4 weeks. - Repeat colonoscopy date to be determined after pending pathology results are reviewed for surveillance based on pathology results. - Continue present medications. Procedure Code(s): --- Professional --- 66680, Colonoscopy, flexible; with biopsy, single or multiple G0500, Moderate sedation services provided by the same physician or other qualified health health care marketing specialist performing a gastrointestinal endoscopic service that sedation supports, requiring the presence of an independent trained observer to assist in the monitoring of the patient's level of consciousness and physiological status; initial 15 minutes of intra-service time; patient age 5 years or older (additional time may be reported with 39904, as appropriate) CPT copyright 2017 [employer]. All rights reserved. The codes documented in this report are preliminary and upon agriculture instructor review may be revised to meet current compliance requirements. Rodrigo Estrada DO 03/17/2021 9:48:32 AM This report has been signed electronically. Number of Addenda: 1 Note Initiated On: 03/17/2021 8:49 AM Addendum Number: 1 Addendum Date: 01/31/2022 4:34:12 PM MAC was used instead of moderate sedation for this patient. Rodrigo Estrada DO 01/31/2022 4:34:16 PM This report has been signed electronically.
[2021-03-17] MEDS: Lisinopril 10 MG Tablet 30 MG PO (10:54)
[2021-03-17] MEDS: 0.9% Saline Lock 10 ML Syringe IV (10:55)
[2021-03-17] MEDS: Metoprolol(XL)Succ 25 MG Tablet 12.5 MG PO (10:55)
[2021-03-17] MEDS: MethylPREDNISolone 125 MG/2 ML Vial 60 MG IV (10:55)
[2021-03-17] MEDS: Ciprofloxacin 400 MG/200 ML BAG 200 MG IV ×2 (10:56→23:48)
[2021-03-17] MEDS: Dicyclomine 10 MG Capsule PO ×2 (10:56→15:52)
--- NOTE | 2021-03-17 11:25 | CASEMGMT ---
RN CM Assessment: Face to Face with pt for initial transition planning/care coordination assessment. RN CM introduced self and role at [facility], pt voices understanding and consents to assessment. Pt is A/O x4 and answers all questions appropriately at this time. Pt sitting up in bed in no distress. Pt is unable to hear this RN CM. She has an gael on her phone that this CM spoke into and she would answer through. Care providers, pharmacy, and demographics verified/updated. Admitting Dx: Colitis, abd pain PCP:Claus Specialists: amos Goddard- She has an appt to get her stitches removed on Friday to her finger. Preferred Pharmacy: [facility] Insurance: [facility] Prescription Benefit: yes LW/HPOA: Pt denies having a LW/DPOA and denies need for info regarding AD. LNOK: Silvestre Paige, sig other Living Arrangements: Pt lives with sig other in a single story house with 2 steps to enter. Pt reports she is I in ADL's and denies concerns at home. Transportation: Pt drives self and denies concerns with transportation. DME/HHC/SNF: Pt has a knee scooter at home. Denies hx of HHC or SNF stays. Pt states no concerns with going home at time of dc. Pt states no further concerns/needs. CM to follow. Advised pt to ask CM if any further question/concerns/needs arise, voices understanding. Pt Goal: Home Plan: Home
[2021-03-17] MEDS: Lactated Ringers 1,000 ML 75 ML IV (12:08)
[2021-03-17] MEDS: Potassium Chloride 10mEq/100mL 10 MEQ/100 ML IV.SOLN. 100 MEQ IV BOLUS (12:09)
[2021-03-17] MEDS: Ensure Clear 120 ML Liquid PO ×3 (12:15→22:25)
[2021-03-17] MEDS: Potassium Chloride 10mEq/100mL 10 MEQ/100 ML IV.SOLN. 65 MEQ IV BOLUS (14:11)
[2021-03-17] MEDS: Potassium Chloride Oral Tablet 20 MEQ 60 MEQ PO (15:52)
[2021-03-18 05:17] VITALS: BP 139/55; PULSE 59; RESP 16; TEMP 37.3; O2SAT 93
[2021-03-18] MEDS: Lactated Ringers 1,000 ML 75 ML IV (05:18)
[2021-03-18] MEDS: metroNIDAZOLE 500 MG/100 ML BAG 100 MG IV (05:20)
[2021-03-18] MEDS: Dicyclomine 10 MG Capsule PO ×2 (06:48→10:57)
[2021-03-18 07:22] VITALS: PULSE 50
[2021-03-18 10:30] VITALS: O2SAT 97
[2021-03-18] MEDS: Ciprofloxacin 400 MG/200 ML BAG 200 MG IV (10:44)
[2021-03-18 10:45] VITALS: BP 131/56; PULSE 54; RESP 16; TEMP 37; O2SAT 97
[2021-03-18] MEDS: Lisinopril 10 MG Tablet 30 MG PO (10:48)
[2021-03-18 10:49] VITALS: PULSE 54
[2021-03-18] MEDS: Ensure Clear 120 ML Liquid PO ×2 (10:50→13:18)
--- NOTE | 2021-03-18 13:04 | PCM.DC ---
Discharge Instructions Diet Discharge Diet: - (Continue on a full liquid diet and advance as tolerated to a regular diet) Activity Discharge Activity: Return to Normal Activity Follow Up Care Test Results: Test results from this visit will be discussed in further detail at your follow-up appointment, if applicable. Discharge Plan Admission Admit Date/Time: 03/16/21 16:34 Primary Reason for Your Visit: Abdominal pain secondary to acute colitis Attending Provider: Aura Melo Primary Care Provider: Talib Devlin Instructions Forms: Work / School Excuse Additional Instructions / Restrictions: Take note of changes to your medications. Continue on a full liquid diet and advance your diet to regular diet as you can tolerate. You have been given 2 days off. Complete your antibiotics. Follow-up with gastroenterology within 2 weeks. Follow-up with orthopedics for removal of stitches as planned. Discharge Orders/Prescriptions Prescriptions: New ciprofloxacin HCl [Cipro] 500 mg tablet 500 mg PO BID 5 Days Qty: 10 RF: 0 metronidazole 500 mg tablet 500 mg PO TID 5 Days Qty: 15 RF: 0 budesonide 9 mg tablet,delayed and ext.release 9 mg PO DAILY 30 Days Qty: 30 RF: 0 Continued lisinopril 20 MG tablet 30 mg PO DAILY RF: 0 metoprolol succinate 25 mg tablet extended release 24 hr 12.5 mg PO DAILY RF: 0 Referrals / Follow Up: Talib Devlin MD [Primary Care Provider] - Within 2 Weeks Rodrigo Estrada DO [STAFF PHYSICIAN] - Within 2 Weeks Disposition Disposition (needs filled in before D/C Order can be placed): Home, Self Care
--- NOTE | 2021-03-18 13:13 | PCM.DC.SUM ---
Providers Date of Admission: 03/16/21 Date of Discharge: 03/18/21 Primary Care Physician: Dr. 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 Reason For Visit: COLITIS ABD PAIN Diagnosis Discharge Diagnosis (1) Intractable abdominal pain: Status: Acute Code(s): R10.9 - Unspecified abdominal pain (2) Pancolitis: Status: Acute Code(s): K51.00 - Ulcerative (chronic) pancolitis without complications (3) Diarrhea: Status: Acute Code(s): R19.7 - Diarrhea, unspecified (4) Hypertension: Status: Chronic Code(s): I10 - Essential (primary) hypertension (5) Deafness: Status: Chronic Code(s): H91.90 - Unspecified hearing loss, unspecified ear (6) Malnutrition: Status: Acute Code(s): E46 - Unspecified protein-calorie malnutrition Medications at Discharge Home Medications lisinopril 30 mg PO DAILY 08/16/19 metoprolol succinate 12.5 mg PO DAILY 02/08/21 budesonide 9 mg PO DAILY 30 Days #30 ea 03/18/21 ciprofloxacin HCl [Cipro] 500 mg PO BID 5 Days #10 tab 03/18/21 metronidazole 500 mg PO TID 5 Days #15 tab 03/18/21 Hospital Course Operations None Procedures Colonoscopy (03/17/21) Summary of Care Provided Minutes Spent on Discharge: 45 Hospital Course: 61-year-old female past medical history of hypertension and deafness who comes in from her primary care doctor's office with abnormal labs showing elevated WBC count. She has had abdominal pain with diarrhea ongoing for about 1 week and diarrhea getting worse. She has been on clindamycin over the last 10 days for right hand digit cellulitis. Her WBC on admission was 12. Her other labs were unremarkable. CT of the abdomen and pelvis showed diffuse thickening of the wall concerning for pancolitis versus pseudomembranous colitis. [facility], started on IV fluids, IV antibiotics. GI was consulted. Colonoscopy was done that showed congested mucosa in the distal ileum and sigmoid colon. Mucosal ulcerations with biopsied. Patient continued to improve. No more diarrhea during this admission. She was able to tolerate a full liquid diet. She was discharged to complete 1 week of Cipro and Flagyl. She was also discharged on budesonide 9 mg p.o. daily She will follow up with GI in 2 weeks for results of her biopsies. She was given work excuse for 2 more days. Should follow-up with her orthopedic surgeon to have stitches removed from her right thumb. Physical Exam Narrative Physical exam: General: Alert, noncommunicative because of deafness, not pale, no joint HEENT: Atraumatic Oral: Moist Mucosa Neck: Supple Lungs: Clear to auscultation Cardiovascular: HS I+II, regular, no murmurs Abdomen: Bowel Sounds Present, Soft, Non Tender Extremities: No edema Medical Records Data Medical Nutrition Assessment Dietitian: Malnutrition Criteria Met Start: 03/16/21 14:36 Freq: Status: Active Protocol: Document 03/16/21 14:37 JUS (Rec: 03/16/21 14:37 [facility] [id number]) Nutrition Malnutrition Evidence of Malnutrition Exists Yes Malnutrition (severe): Acute Illness/Injury Evidenced By Suboptimal Energy Intake ( Severe),Weight Loss (Severe) Clinical Problem Acute Disease or Injury Related Malnutrition Etiology related to issues 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 / diarrhea) 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 difficile GDH Antigen & Toxins - Final 03/16/21 13:05 Stool C. difficile DNA Amplification - Final 03/16/21 09:45 Nasal Secretion SARS-CoV-2 Antigen (Rapid) - Final D/C Instructions Discharge Diet: - (Continue on a full liquid diet and advance as tolerated to a regular diet) Meaningful Use Info Meaningful Use Diagnoses (Choose all that apply): None applicable Discharge Plan Admission Admit Date/Time: 03/16/21 16:34 Primary Reason for Your Visit: Abdominal pain secondary to acute colitis Attending Provider: Aura Melo Primary Care Provider: Talib Devlin Instructions Forms: Work / School Excuse Additional Instructions / Restrictions: Take note of changes to your medications. Continue on a full liquid diet and advance your diet to regular diet as you can tolerate. You have been given 2 days off. Complete your antibiotics. Follow-up with gastroenterology within 2 weeks. Follow-up with orthopedics for removal of stitches as planned. Discharge Orders/Prescriptions Prescriptions: New ciprofloxacin HCl [Cipro] 500 mg tablet 500 mg PO BID 5 Days Qty: 10 RF: 0 metronidazole 500 mg tablet 500 mg PO TID 5 Days Qty: 15 RF: 0 budesonide 9 mg tablet,delayed and ext.release 9 mg PO DAILY 30 Days Qty: 30 RF: 0 Continued lisinopril 20 MG tablet 30 mg PO DAILY RF: 0 metoprolol succinate 25 mg tablet extended release 24 hr 12.5 mg PO DAILY RF: 0 Referrals / Follow Up: Rodrigo Estrada DO [STAFF PHYSICIAN] - Within 2 Weeks Talib Devlin MD [Primary Care Provider] - Within 2 Weeks Disposition Disposition (needs filled in before D/C Order can be placed): Home, Self Care
[2021-03-18 13:16] VITALS: BP 132/59; PULSE 45; RESP 16; TEMP 36.6; O2SAT 95
== END 2021-03-18 15:01 | disposition home or self-care (01) | DRG 385 ==
LOC: ED 11:54 → MS3 14:02
PROVIDERS: Internal Medicine Gastroenterology; Admitting Provider Internal Medicine; Emergency Provider Emergency Medicine; PCP Family Medicine; Visit Provider Internal Medicine
PROC: 0DJD8ZZ Inspection of Lower Intestinal Tract, Via Natural or Artificial Opening Endoscopic (ICD-10-PCS; CPT 45378; principal; 2021-03-17 07:45)
DX: K51.00 Ulcerative (chronic) pancolitis without complications (principal); E43 Unspecified severe protein-calorie malnutrition; H91.90 Unspecified hearing loss, unspecified ear; I10 Essential (primary) hypertension; E87.6 Hypokalemia; Z68.27 Body mass index [BMI] 27.0-27.9, adult; Z79.899 Other long term (current) drug therapy
CPT/HCPCS: 36415; 74177; 80048; 80053; 81001; 83605; 85025; 87040; 87426; 87493; 87506; 88305; 93005; 97802; 99284; J7030; J7120; Q9967; A4216; J0744; J2405

== ENCOUNTER → 2021-04-05 05:54 | Outpatient (CLI) | payer OTHER, MEDICARE, SELFPAY | PROVIDERS: PCP Family Medicine; Referring Provider Internal Medicine Gastroenterology; Visit Provider Internal Medicine Gastroenterology | DX: K51.00 Ulcerative (chronic) pancolitis without complications (principal) ==

== ENCOUNTER 2021-05-31 19:53 | Emergency (ER) | payer OTHER, MEDICARE, SELFPAY ==
[2021-05-31 19:57] VITALS: BP 175/85; PULSE 103; RESP 16; TEMP 37.3; O2SAT 95; BMI 29.1
--- NOTE | 2021-05-31 20:42 | EKG12_ITS ---
Test Reason : DYSRHYTHMIA Blood Pressure : / mmHG Vent. Rate : 099 BPM Atrial Rate : 099 BPM P-R Int : 166 ms QRS Dur : 076 ms QT Int : 330 ms P-R-T Axes : 044 -11 -08 degrees QTc Int : 423 ms Normal sinus rhythm Nonspecific T wave abnormality Abnormal ECG Confirmed by HUANG RAZO, GOPI ([id number]), metropolitan editor HAFSA PATTERSON ([id number]) on 06/06/2021 10:52:49 AM Referred By: ANGEL Confirmed By:GOPI ENCINAS MD
--- NOTE | 2021-05-31 21:05 | RAD_ITS ---
INDICATION: cough EXAMINATION/TECHNIQUE: X-RAY - XR Chest 1 View COMPARISON: 08/16/2019. FINDINGS: The lungs are clear. The heart is borderline enlarged. No pleural effusion or pneumothorax. Degenerative changes of the thoracic spine. RAD/Chest 1 View (Portable) IMPRESSION: No acute radiographic abnormalities. Electronically Signed: Lloyd Han MD at 21:47 EST Tel , Service support ,
[2021-05-31 21:29] LABS: Absolute Neutrophil Count 5.5 X10^3/uL (2.0-7.7); Basophil# 0.03 X10^3/uL; Basophil% 0.4 % (0-1); Eosinophil# 0.14 X10^3/uL; Hematocrit 39.2 % (37-47); Hemoglobin 13.2 g/dL (12.0-15.0); Lymphocyte % 9.9 % (19-41); Mean Corp Hgb Conc 33.7 g/dL (32-36); Mean Corpuscular Hgb 29.5 pg (27.0-32.0); Mean Corpuscular Volume 87.7 fL (81-99); Mean Platelet Vol. 9.7 fl (6.2-12.0); Monocyte# 0.64 X10^3/uL; Monocyte% 9.1 % (0-10); NRBC Flagged by Analyzer 0 % (0-5); Neutrophil # 5.52 X10^3/uL (2.7-7.7); Platelet Count 236 K/mm3 (150-450); RBC Distribution Width CV 12.9 % (11.6-14.6); RBC Distribution Width SD 41.1 fl (35.1-43.9); Red Blood Count 4.47 M/mm3 (4.2-5.4); White Blood Count 7.1 K/mm3 (4.4-11.0)
[2021-05-31 21:37] VITALS: PULSE 101; RESP 23; O2SAT 93
[2021-05-31 21:46] VITALS: BP 161/83; PULSE 99; RESP 22; O2SAT 96
[2021-05-31 21:53] LABS: ALB/GLOB Ratio 0.9 RATIO (0.9-2.4); AST(SGOT) 28 U/L (15-37); Alanine Aminotransfer ALT/SGPT 38 U/L (13-56); Albumin, Serum 3.5 g/dL (3.2-5.0); Alkaline Phosphatase 100 U/L (45-117); Anion Gap 7 (5-15); BUN 11 mg/dL (7-18); BUN/Creat Ratio 11.8 RATIO (10-20); Calcium,Total 9.5 mg/dL (8.5-10.1); Chloride 106 mmol/L (98-107); Creatinine, Serum 0.93 mg/dL (0.55-1.02); EST Glomerular Filtration Rate 65 mL/min (>60); Est Glom Filt Rate - Afr Amer 79 mL/min (>60); Estimated Creatinine Clearance 53.21 ml/min; Globulin 3.9 g/dL (2.2-4.2); Glucose 118 mg/dL (74-106); Potassium 3.5 mmol/L (3.5-5.1); Protein, Total 7.4 g/dL (6.4-8.2); Sodium Level 140 mmol/L (136-145)
--- NOTE | 2021-05-31 22:43 | EX.ED.VIS.UR ---
HPI HPI - URI History of Present Illness Chief Complaint: Hypertension Narrative Narrative: Patient presenting initially triaged as elevated blood pressures. She states that her blood pressure has been going up and down for last couple of days. She is on lisinopril 30 mg as well as metoprolol 12.5 mg daily. She is had no changes. She states that her blood pressure does fluctuate. The patient is deaf and I did have to spend an extended amount of time typing messages [id number] on her phone but her chief complaint seems to be fevers, chills, body aches. She is not complaining of chest pain or cough. She is not had COVID-19 and she is not vaccinated. ROS ROS ED Constitutional Constitutional ED: Reports chills and fever(s) Eyes Eyes: Denies blurry vision or change in vision ENT ENT ED: Denies rhinorrhea or sore throat Cardiovascular Cardiovascular: Denies chest pain or palpitations Respiratory/Chest Respiratory/Chest: Reports cough; Denies dyspnea Gastrointestinal Gastrointestinal: Denies abdominal pain, nausea or vomiting Genitourinary Genitourinary ED: Denies dysuria or hematuria Musculoskeletal Musculoskeletal: Denies arthralgias or myalgias Integumentary Denies Abrasions or rash Neurologic Neurologic: Denies headache(s) or paresthesias PFSH PFSH Medical History Deaf HTN (hypertension) Left ventricular hypertrophy Home Medications lisinopril 30 mg PO DAILY 08/16/19 [History Last Taken 08/16/19] metoprolol succinate 12.5 mg PO DAILY 02/08/21 [History Last Taken Unknown] ciprofloxacin HCl [Cipro] 500 mg PO BID 5 Days #10 tab 03/18/21 [Rx Last Taken Unknown] metronidazole 500 mg PO TID 5 Days #15 tab 03/18/21 [Rx Last Taken Unknown] budesonide 9 mg tablet,delayed and extended release 9 mg PO DAILY 30 Days #30 ea 04/16/21 [Rx Last Taken Unknown] azathioprine 50 mg tablet 100 mg PO DAILY #60 tab 04/20/21 [Rx Last Taken Unknown] Allergy/AdvReac Type Severity Reaction Status Date / Time latex Allergy NEEDS Verified 05/31/21 19:57 FOLLOW-UP spicy food Allergy PT UNSURE Uncoded 05/31/21 19:57 OF REACTION Family History Mother Hypertension Pacemaker Father Hypertension Diabetes Grandfather Cancer Lung- Smoker & asbestos exposure Surgical History History of foot surgery Social History Smoking Status: Never smoker EXAM Physical Exam Const Vital Signs: 05/31/21 19:57 05/31/21 21:37 05/31/21 21:46 Temperature 99.1 F Temperature Source Temporal Pulse Rate 103 H 101 H 99 Respiratory Rate 16 23 H 22 H Blood Pressure 175/85 H 161/83 H Blood Pressure Mean 115 109 Pulse Ox 95 93 96 Oxygen Delivery Method Room Air Room Air Room Air Positive well nourished General Appearance ED: NAD; Negative for pallor HEENT Reports moist mucous membranes normocephalic Eyes PERRL and EOMs intact bilaterally Neck supple and no meningeal signs Resp normal respiratory effort and clear to auscultation bilaterally Cardio Rate: regular rate Rhythm: regular rhythm GI non-tender Palpation: soft Extremity normal to inspection; Negative for full ROM General Extremety ED: Negative for cyanosis General Extremity: Negative for cyanosis Neuro oriented x3, CN's II-XII intact bilaterally and no sensory deficits noted Sensorium / Orientation: alert Motor Exam: strength 5/5 throughout Psych mental status grossly normal Skin General Skin Exam: Negative for jaundice or pallor MDM MDM MDM Narrative Medical decision making narrative: Patient blood pressure is somewhat elevated however I do not believe it is emergent. She is not having symptoms of headache or visual complaints. She is more concerned with her viral symptoms. I did obtain blood work and an EKG. Her EKG is sinus rhythm with a ventricular rate of 99 bpm with T wave inversions in lead III and aVF which were present on her previous EKG 16 March 2021. CMP is within normal limits. Chest x-ray shows no acute cardiopulmonary process. The patient is not hypoxic or tachypneic and I have low suspicion of PE. I do not believe she needs a D-dimer today. She is also not reporting any chest pain. Chest x-ray on my interpretation shows no acute cardiopulmonary process. Patient's rapid Covid did return positive and after speaking with her she would like to be referred for monoclonal antibodies. She is given a work note so she can 14 at home. She is given return precautions. Patient discharged stable condition. Impression: #1. Elevated blood pressure established?[id number] #2. COVID-19 Lab Data Attestation: I reviewed the patient's lab results. Labs: Laboratory Results - last 24 hr 05/31/21 05/31/21 21:00 21:00 WBC 7.1 RBC 4.47 Hgb 13.2 Hct 39.2 MCV 87.7 MCH 29.5 MCHC 33.7 RDW Std Deviation 41.1 RDW Coeff of Ivy 12.9 Plt Count 236 MPV 9.7 Immature Gran % (Auto) 0.600 Neut % (Auto) 78.0 H Lymph % (Auto) 9.9 L [place] % (Auto) 9.1 Eos % (Auto) 2.0 Baso % (Auto) 0.4 Absolute Neuts (auto) 5.5 Absolute Lymphs (auto) 0.70 L Nucleated RBC % 0 Sodium 140 Potassium 3.5 Chloride 106 Carbon Dioxide 27.0 Anion Gap 7 BUN 11 Creatinine 0.93 Estim Creat Clear Calc 53.21 Est GFR (MDRD) Af Amer 79 Est GFR (MDRD) Non-Af 65 BUN/Creatinine Ratio 11.8 Glucose 118 H Calcium 9.5 Total Bilirubin 0.70 AST 28 ALT 38 Alkaline Phosphatase 100 Total Protein 7.4 Albumin 3.5 Globulin 3.9 Albumin/Globulin Ratio 0.9 Radiography Diagnostic Testing: Clinical Impression(s) from Imaging Studies Chest X-Ray 05/31/21 21:05 IMPRESSION: No acute radiographic abnormalities. Electronically Signed: Lloyd Han MD at 21:47 EST Tel , Service support , Discharge Plan Triage Chief Complaint: Hypertension ED Provider: Ziggy Bradford Dx/Rx/DC Orders Instructions: Coronavirus Disease 2019 (COVID-19): Caring for Yourself or Others, ED - COVID Monoclonal AB Infusion ... Prescriptions: No Action lisinopril 20 MG tablet 30 mg PO DAILY RF: 0 metoprolol succinate 25 mg tablet extended release 24 hr 12.5 mg PO DAILY RF: 0 ciprofloxacin HCl [Cipro] 500 mg tablet 500 mg PO BID 5 Days Qty: 10 RF: 0 metronidazole 500 mg tablet 500 mg PO TID 5 Days Qty: 15 RF: 0 budesonide 9 mg tablet,delayed and ext.release 9 mg PO DAILY 30 Days Qty: 30 RF: 3 azathioprine [Imuran] 50 mg tablet 100 mg PO DAILY Qty: 60 RF: 3 Stand Alone Forms: ED Work / School Excuse Primary Care Provider: Talib Devlin Referrals: Talib Devlin MD [Primary Care Provider] - Disposition Disposition: Home, Self Care
[2021-05-31 22:50] VITALS: PULSE 83; RESP 16; O2SAT 95
== END 2021-05-31 22:51 | disposition home or self-care (01) ==
PROVIDERS: Emergency Provider Student in an Organized Health Care Education/Training Program; PCP Family Medicine
DX: I10 Essential (primary) hypertension (principal); U07.1 COVID-19; H91.90 Unspecified hearing loss, unspecified ear; Z79.899 Other long term (current) drug therapy
CPT/HCPCS: 71045; 80053; 85025; 87426; 93005; 99284; A4216

== ENCOUNTER 2024-02-12 05:48 | Emergency (ER) | payer OTHER, SELFPAY ==
[2024-02-12 05:49] VITALS: BP 169/75; PULSE 59; RESP 18; TEMP 36.2; O2SAT 98; BMI 27.5
--- NOTE | 2024-02-12 06:14 | ED.VIS.BACK ---
HPI History of Present Illness Chief Complaint: Other, Pain/Inj Detail of Chief Complaint: Left lateral neck pain. Denies any trauma. Informant: patient, spouse/S.O. and other (Patient and spouse are deaf. We used the sign language interpreter iPad.) Onset/Context/Timing Onset: Days Context: Gradual Onset Injury: - (No known injury. But the patient does a lot of lifting and carrying boxes at work.) Timing: Continuous Quality: Sharp Location: - (Left lateral neck pain.) Current Severity: Moderate Maximum Severity: Moderate Worsened by: improves with Movement and - (Worse with trying to rotate her head and neck.) Associated Symptoms Associated Symptoms: Negative for Numbness, Tingling, Radiation to Right Leg, Radiation to Left Leg, Fever, Abdominal Pain, Dysuria, Unable to Ambulate, Unable to Transfer, Urinary Retention, Urinary Incontinence, Constipation or Fecal Incontinence Narrative Narrative: 63-year-old female history of being deaf and hypertension. No prior neck or back surgery. States she has had crampy left-sided lateral neck pain since last Friday. About 6 days ago. Worse on Friday. Saw a nurse practitioner at the local [facility] office. They placed her on a muscle relaxant and prednisone without any significant relief. She denies any fall injury or trauma. She denies any radiation to her arms. She denies any fever. She does work I believe at [employer] and does a lot of lifting and carrying of boxes. Denies fever or recent illness. Pain is worse with trying to rotate her neck from the left to the right. Prior similar symptoms: No Recent Illness/Hospitalization: No [facility] Medical History Left ventricular hypertrophy Deaf HTN (hypertension) Home Medications ?Medication ?Instructions ?Recorded ?Last Taken ?Type lisinopril 20 mg tablet 30 mg PO DAILY bp 08/16/19 08/16/19 History metoprolol succinate 25 mg 12.5 mg PO DAILY 02/08/21 Unknown History tablet,extended release 24 hr metronidazole 500 mg tablet 500 mg PO TID 5 days #15 tabs 03/18/21 Unknown Rx budesonide 9 mg tablet,delayed and 9 mg PO DAILY 30 days #30 ea 04/16/21 Unknown Rx extended release azathioprine 50 mg tablet (Imuran) 100 mg (2 x 50 mg) PO DAILY #60 04/20/21 Unknown Rx tabs lisinopril 40 mg tablet 40 mg PO DAILY 02/12/24 Unknown History metaxalone 800 mg tablet 800 mg PO TID 7 days #21 tabs 02/12/24 Unknown Rx methocarbamol 500 mg tablet 500 mg PO Q6H PRN PRN pain 02/12/24 Unknown History prednisone 50 mg tablet 50 mg PO DAILY 02/12/24 Unknown History rosuvastatin 5 mg tablet 5 mg PO DAILY 02/12/24 Unknown History Allergy/AdvReac Type Severity Reaction Status Date / Time Food Allergies: Uncoded Allergy Unknown PT UNSURE Verified 02/12/24 06:03 OF REACTION latex Allergy NEEDS Verified 02/12/24 06:03 FOLLOW-UP Family History Mother Hypertension Pacemaker Father Hypertension Diabetes Grandfather Cancer Lung- Smoker & asbestos exposure Surgical History History of foot surgery Social History Smoking Status: Never smoker ROS ROS ED ROS Narrative Denies recent illness. Constitutional Constitutional ED: Denies chills or fever(s) Eyes Eyes: Denies blurry vision ENT ENT ED: Denies ear pain Cardiovascular Cardiovascular: Denies chest pain Respiratory/Chest Respiratory/Chest: Denies dyspnea Gastrointestinal Gastrointestinal: Denies abdominal pain Genitourinary Genitourinary ED: Denies dysuria or hematuria Musculoskeletal Musculoskeletal: Reports neck pain; Denies arthralgias or back pain Integumentary Denies abscess Neurologic Neurologic: Denies headache(s) Psychiatric Psychiatric: Denies anxiety Endocrine Endocrinology: Denies cold intolerance Hematologic/Lymphatic Hematologic/Lymphatic: Denies easy bleeding Allergic/Immunologic Allergic/Immunologic ED: Denies mouth swelling EXAM Physical Exam Narrative Exam Narrative: Well-appearing 63-year-old female. Accompanied by her . Vital signs are stable afebrile. H EENT exam pupils round reactive light. No trauma. Neck she has reproducible tenderness along her left lateral trapezius. Paracervical musculature. Spine is nontender. There is no ecchymosis or bruising. No signs of trauma. Increased pain trying to rotate her head from left to right. Trachea midline. No significant back or spine tenderness. Lungs clear. Heart regular rhythm. Abdomen soft nontender. Chest wall and ribs nontender. Abdomen soft nontender. Moving all 4 extremities. 5 out of 5 windshield technician strength. Dorsi plantarflexion intact. She is awake and alert. Answering questions and following commands. No focal motor weakness. Const Vital Signs: 02/12/24 05:48 02/12/24 05:49 Temperature 97.1 F L Temperature Source Temporal Pulse Rate 59 L Respiratory Rate 18 Respiratory Effort Normal Non-Labored Respiratory Pattern Normal Blood Pressure 169/75 H Blood Pressure Mean 106 Pulse Ox 98 Oxygen Delivery Method Room Air Positive well nourished and well developed; Negative for cachectic, contractures or unkempt General Appearance ED: well developed and NAD; Negative for unkempt, cachectic, contractures or pallor Nutritional Appearance: Negative for cachectic HEENT Reports moist mucous membranes; Denies dry mucous membranes Negative for trauma or tenderness Mouth ED: No dry mucous membranes Mouth: No dry mucous membranes Eyes PERRL and EOMs intact bilaterally Neck no lymphadenopathy, supple and no JVD Neck Narrative: Left lateral tenderness on the soft tissue of her neck consistent with a muscle spasm. No signs of trauma. No rash. No bony tenderness. Increasing pain with rotation of her head from left to right. General: tenderness Thyroid: Negative for other Chest Wall Chest: Negative for other Resp normal respiratory effort and clear to auscultation bilaterally Effort and Inspection: Negative for pain with movement Auscultation: Negative for rales, rhonchi, wheezes or diminished lung sounds Cardio regular rate, regular rhythm, S1 normal heart sound, S2 normal heart sound and no murmurs Rhythm: Negative for abnormal rhythm GI normal to inspection, nondistended, normoactive bowel sounds, soft to palpation, non-tender, non-distended and no masses Palpation: Negative for tender, guarding, pulsatile mass or rebound tenderness present Back/Spine normal to inspection and no thoracic nor lumbar tenderness Cervical Spine: paracervical muscle tenderness Thoracic Spine / Upper Back: Negative for paraspinal muscle tenderness Extremity normal to inspection and no clubbing, cyanosis or edema General Extremety ED: Negative for edema or tenderness General Extremity: Negative for edema Neuro oriented x3 and no sensory deficits noted Sensorium / Orientation: alert; Negative for confused, lethargic or stuporous Motor Exam: strength 5/5 throughout Psych mental status grossly normal Appearance: Negative for unkempt Attitude: No agitated and No other Mood & Affect: Negative for depressed, sad or tearful Skin no rashes or lesions noted and no wounds General Skin Exam: Negative for jaundice or pallor Lesions: No lesion noted Rashes: No rashes noted Trauma: Negative for abrasion or puncture Wounds: Negative for wounds noted MDM MDM MDM Narrative Medical decision making narrative: 63-year-old female with atraumatic neck pain. Exam and history are consistent with a left paracervical muscle strain and spasm. She be given IM injection of morphine for pain. Zofran to prevent nausea. She will be placed on Skelaxin 800 mg 3 times daily for 7 days. Hot shower, warm compresses and massage. Nonsteroidal anti-inflammatories for pain. Follow-up if not improving. Return if worse. History & Record Review Discussion w/independent historian: Patient and Family Additional record(s) reviewed:: Prior inpatient record, Prior outpatient record, Prior ED visit and Prior labs Discharge Plan Triage Chief Complaint: Other, Pain/Inj ED Provider: Germain Stevens Dx/Rx/DC Orders Clinical Impression: Neck muscle spasm, Deafness Instructions: ED Neck Spasm, No Trauma Prescriptions: New metaxalone 800 mg tablet 800 mg PO TID 7 Days Qty: 21 0RF No Action lisinopril 20 MG tablet 30 mg PO DAILY metoprolol succinate 25 mg tablet extended release 24 hr 12.5 mg PO DAILY Patient Comments: TAKE 1 2 (ONE HALF) TABLET BY MOUTH ONCE DAILY metronidazole 500 mg tablet 500 mg PO TID 5 Days Qty: 15 0RF methocarbamol 500 mg tablet 500 mg PO Q6H PRN PRN (Reason: pain) prednisone 50 mg tablet 50 mg PO DAILY rosuvastatin 5 mg tablet 5 mg PO DAILY lisinopril 40 mg tablet 40 mg PO DAILY budesonide 9 mg tablet,delayed and ext.release 9 mg PO DAILY 30 Days Qty: 30 3RF azathioprine [Imuran] 50 mg tablet 100 mg PO DAILY Qty: 60 3RF Primary Care Provider: Talib Devlin Referrals: Talib Devlin MD [Primary Care Provider] - 3-5 Days if not improving Activity Restrictions/Additional Instructions: You have muscle spasms on the left side of your neck. Hot shower, warm bath, warm compresses and massage. You can use Aleve or Motrin for pain and inflammation. The muscle relaxant Skelaxin 1 pill 3 times a day for 7 days. This will work but it takes several days to start relaxing the muscle. Off work today, February 11 and February 12. Follow-up with your doctor if not improving. Print Language: Amharic Disposition Disposition: Home, Self Care
[2024-02-12] MEDS: morphine 10 MG/ML Syringe IM (06:15)
[2024-02-12] MEDS: Ondansetron ODT 4 MG Tablet PO (06:15)
[2024-02-12 06:20] VITALS: BP 164/67; PULSE 87; RESP 15; TEMP 36.2; O2SAT 99
== END 2024-02-12 06:39 | disposition home or self-care (01) ==
LOC: ED 06:21
PROVIDERS: Emergency Provider Emergency Medicine; PCP Family Medicine; Visit Provider Emergency Medicine
DX: M62.838 Other muscle spasm (principal); H91.90 Unspecified hearing loss, unspecified ear; I10 Essential (primary) hypertension; Z79.899 Other long term (current) drug therapy; Z79.52 Long term (current) use of systemic steroids
CPT/HCPCS: 96372; 99282